=== PATIENT | male | born 1955 | race African-American/Black ===

== ENCOUNTER 2021-04-23 08:36 | Day surgery (SDC) | payer MEDICAID, SELFPAY ==
[2021-04-18 09:12] VITALS: BMI 22.0
--- NOTE | 2021-04-22 09:02 | P.CONAN_ITS ---
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 Unspecified convulsions Social History Social History Are you a primary healthcare account manager to a significant other at home: No Do you presently have visiting nurse or other home services: No Patient Tobacco Use Status: Tobacco use Unknown Are you DNR?: No Advance Directives: Yes Advance Directives Information Provided: No Advance Directives on File: Yes Advance Directives Date on File: 06/14/09 Recently lost weight without trying: No Meds Allergies Allergy/AdvReac Type Severity Reaction Status Date / Time insulin aspart Allergy Unknown Verified 04/18/21 08:54 Penicillins Allergy Unknown Verified 04/18/21 08:54 Home Medications Medication Instructions Recorded Confirmed Last Taken Type acetaminophen 325 mg tablet 650 mg PO Q4H PRN 04/18/21 04/18/21 Unknown History benztropine 1 mg tablet 1 mg PO BID 04/18/21 04/18/21 Unknown History bisacodyl 10 mg rectal suppository 10 mg OH DAILY PRN 04/18/21 04/18/21 Unknown History doxycycline hyclate 100 mg tablet 100 mg PO BID 04/18/21 04/18/21 Unknown History haloperidol decanoate 0.75 ml IM .[id number] 04/18/21 04/18/21 Unknown History levetiracetam 750 mg tablet 375 mg PO BID 04/18/21 04/18/21 Unknown History (Keppra) ondansetron HCl 4 mg tablet 4 mg PO Q6H PRN 04/18/21 04/18/21 Unknown History sennosides 8.6 mg tablet (senna) 8.6 mg PO DAILY PRN 04/18/21 04/18/21 Unknown History Exam Exam Date and Time: April 22, 2021 09 Height,Weight and Vital Signs: Height 5 ft 8 in Weight 65.771 kg Assessment and Plan Assessment Anesthesia Assessment: Chart Reviewed Documented by User: Cheikh Dumont 04/23/21 18:42 PMFSH Past Medical History Medical History Age-related nuclear cataract of both eyes Concussion with loss of consciousness of unspecified duration 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 Unspecified convulsions Family History Family history of problems with anesthesia: No Surgical History History of Problems with Anesthesia: No Social History Social History Are you a primary healthcare account manager to a significant other at home: No Do you presently have visiting nurse or other home services: No Patient Tobacco Use Status: Tobacco use Unknown Are you DNR?: No Advance Directives: Yes Advance Directives Information Provided: No Advance Directives on File: Yes Advance Directives Date on File: 06/14/09 Recently lost weight without trying: No Meds Allergies Allergy/AdvReac Type Severity Reaction Status Date / Time insulin aspart Allergy Unknown Verified 04/18/21 08:54 Penicillins Allergy Unknown Verified 04/18/21 08:54 Home Medications Medication Instructions Recorded Confirmed Last Taken Type acetaminophen 325 mg tablet 650 mg PO Q4H PRN 04/18/21 04/18/21 Unknown History benztropine 1 mg tablet 1 mg PO BID 04/18/21 04/18/21 Unknown History bisacodyl 10 mg rectal suppository 10 mg OH DAILY PRN 04/18/21 04/18/21 Unknown History doxycycline hyclate 100 mg tablet 100 mg PO BID 04/18/21 04/18/21 Unknown History haloperidol decanoate 0.75 ml IM .[id number] 04/18/21 04/18/21 Unknown History levetiracetam 750 mg tablet 375 mg PO BID 04/18/21 04/18/21 Unknown History (Keirene) ondansetron HCl 4 mg tablet 4 mg PO Q6H PRN 04/18/21 04/18/21 Unknown History sennosides 8.6 mg tablet (senna) 8.6 mg PO DAILY PRN 04/18/21 04/18/21 Unknown History Exam Airway Mallampati Class: III TM Dist: >3cm Neck ROM: Full Denture: Upper Partial: Lower Loose/Missing/Broken Teeth: Yes Heart: rrr Lungs: bl breath sounds Assessment and Plan Final Anesthetic Review Family History of Problems with Anesthesia: No History of Problems with Anesthesia: No NPO: Yes ASA Class: III Final Preanesthetic Review: Natalie Risks/Benef Reviewed Patient Risk: Intermediate Procedure Risk: Intermediate Anesthetic Plan Anesthetic Plan: MAC: Disposition: Standard PACU
[2021-04-23 09:10] VITALS: BP 133/87; PULSE 80; RESP 16; TEMP 35.9; O2SAT 95
[2021-04-23] MEDS: Lactated Ringers 1,000 ML 100 ML IVCONT (09:16)
[2021-04-23 11:25] VITALS: BP 136/83; PULSE 79; RESP 20; TEMP 37; O2SAT 100
--- NOTE | 2021-04-23 11:28 | PM.OP ---
Brief Operative Note Date of Service: 04/23/21 Pre-op diagnosis: Screening Post-op diagnosis: other (Colon polyp) Procedure: Colonoscopy to the cecum and TI with hot snare polypectomy. placement of submucosal ink markings, and placement of 2 Resolution clips Surgeon: Олег Loving Anesthesia: MAC Was an Digital Marketing Apprentice used for this Procedure?: No Estimated blood loss (mL): 2.0 Pathology: other (A. Colon polyp at 50cm) Condition: stable Disposition: PACU
[2021-04-23 11:40] VITALS: BP 147/78; PULSE 78; RESP 16; O2SAT 98
--- NOTE | 2021-04-23 12:19 | OP_ITS ---
SURGEON: Олег Loving MD INDICATIONS: The patient presents for evaluation of colorectal cancer screening. Full consent has been obtained from his guardian, Business Project Manager Godbout, including risks of bleeding and perforation. PREOPERATIVE DIAGNOSIS: Colorectal cancer screening. POSTOPERATIVE DIAGNOSIS: Colorectal cancer screening, large colon polyp, diverticulosis, and internal hemorrhoids. PROCEDURE PERFORMED: Colonoscopy to the cecum and terminal ileum with hot snare polypectomy, placement of submucosal ink markings, and placement of 2 Resolution clips on the polypectomy site. ESTIMATED BLOOD LOSS: COMPLICATIONS: ANESTHESIA: Monitored anesthesia care. ASSISTANTS: SPECIMENS: DESCRIPTION OF PROCEDURE: The patient was placed in the left lateral decubitus position. The digital rectal exam revealed no abnormalities. The Olympus video pediatric colonoscope was entered into the rectum and advanced easily to the cecum. Once in the cecum, I did identify normal-appearing cecal pouch with appendiceal orifice and a normal-appearing ileocecal valve. The terminal ileum was cannulated and appeared normal. The scope withdrawn back in the colon. The entire cecum and ileocecal valve appeared normal. The scope was slowly withdrawn assessing all mucosal surfaces carefully. Preparation was excellent. At 50 cm, which may have been in the proximal descending colon or even the distal transverse colon, was a flat, but quite raised and lobulated polypoid lesion which appeared to be at least adenomatous or villous in nature. It did not appear to be definitively consistent with carcinoma. The lesion itself was quite large and approximately 5 cm x 2 cm. This was removed in piecemeal fashion with the hot snare polypectomy with all pieces recovered by suction. The tissue itself was quite soft. Post-polypectomy, there did not appear to be any definitive residual polyp tissue, but there may have been some at the edges of the lesion. There was no bleeding. I did place submucosal ink markings just distal and just proximal to the lesion. I then placed 2 Resolution clips on at least a portion of the polypectomy site with good deployment and good hemostasis. I did not visualize any other polyps, colitis, nor angiodysplasia. There was a mild amount of sigmoid diverticulosis. In the rectum, scope was retroflexed visualizing internal hemorrhoids, but no other pathology. The rectal mucosa appeared normal. The scope was straightened and withdrawn from the patient. He tolerated the procedure well and was returned to recovery area in stable condition. IMPRESSION: 1. Large polypoid lesion at 50 cm, status post hot snare polypectomy, placement of 2 Resolution clips, and placement of submucosal ink markings. 2. Diverticulosis. 3. Internal hemorrhoids. PLAN: The results of the pathology will be checked. Based on the results, we would then decide whether or not he would need surgery or simply a repeat colonoscopy in the next 6-12 months. Instructions have been given that he should not use any aspirin and NSAIDs for at least 2 weeks. MD FARRAH Fernandez/BIANCA / [id number]
== END 2021-04-23 12:15 | disposition home or self-care (01) ==
PROVIDERS: PCP Hospitalist; Visit Provider Internal Medicine
PROC: 0DJD8ZZ Inspection of Lower Intestinal Tract, Via Natural or Artificial Opening Endoscopic (ICD-10-PCS; CPT 45378; principal; 2021-04-23 09:20)
DX: Z12.11 Encounter for screening for malignant neoplasm of colon (principal); K63.5 Polyp of colon; K57.30 Diverticulosis of large intestine without perforation or abscess without bleeding; K64.8 Other hemorrhoids; R56.9 Unspecified convulsions; Z88.0 Allergy status to penicillin; Z79.899 Other long term (current) drug therapy
CPT/HCPCS: 45385; 45381; 88305

== ENCOUNTER 2021-09-26 09:10 | Day surgery (SDC) | payer MEDICAID, SELFPAY ==
[2021-09-24 09:02] VITALS: BMI 23.2
--- NOTE | 2021-09-24 15:19 | P.CONAN_ITS ---
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 Unspecified convulsions Family History Family history of problems with anesthesia: No Surgical History History of Problems with Anesthesia: No Social History Social History Are you a primary progressive care unit registered nurse to a significant other at home: No Do you presently have visiting nurse or other home services: No Patient Tobacco Use Status: Former Tobacco user Are you DNR?: No Advance Directives: Yes Advance Directives on File: Yes Advance Directives Date on File: 06/14/09 Recently lost weight without trying: No Meds Allergies Allergy/AdvReac Type Severity Reaction Status Date / Time insulin aspart Allergy Unknown Verified 04/18/21 08:54 Penicillins Allergy Unknown Verified 04/18/21 08:54 Home Medications Medication Instructions Recorded Confirmed Last Taken Type acetaminophen 325 mg tablet 650 mg PO Q4H PRN Pain 04/18/21 04/18/21 Unknown History benztropine 1 mg tablet 1 mg PO BID 04/18/21 04/18/21 09/26/21 History haloperidol decanoate 0.75 ml IM .[id number] 04/18/21 04/18/21 Unknown History levetiracetam 750 mg tablet 375 mg PO BID 04/18/21 04/18/21 09/26/21 History (Keirene) Exam Exam Date and Time: September 24, 2021 1519 Height,Weight and Vital Signs: Height 5 ft 8 in Weight 69.4 kg Assessment and Plan Assessment Anesthesia Assessment: Chart Reviewed Final Anesthetic Review Family History of Problems with Anesthesia: No History of Problems with Anesthesia: No Documented by User: Cheikh Dumont MD 09/30/21 19:04 COUNT INCLUDES THE [facility] Past Medical History Medical History Age-related nuclear cataract of both eyes Concussion with loss of consciousness of unspecified duration 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 Unspecified convulsions Social History Social History Are you a primary progressive care unit registered nurse to a significant other at home: No Do you presently have visiting nurse or other home services: No Patient Tobacco Use Status: Former Tobacco user Are you DNR?: No Advance Directives: Yes Advance Directives on File: Yes Advance Directives Date on File: 06/14/09 Recently lost weight without trying: No Meds Allergies Allergy/AdvReac Type Severity Reaction Status Date / Time insulin aspart Allergy Unknown Verified 04/18/21 08:54 Penicillins Allergy Unknown Verified 04/18/21 08:54 Home Medications Medication Instructions Recorded Confirmed Last Taken Type acetaminophen 325 mg tablet 650 mg PO Q4H PRN Pain 04/18/21 04/18/21 Unknown History benztropine 1 mg tablet 1 mg PO BID 04/18/21 04/18/21 09/26/21 History haloperidol decanoate 0.75 ml IM .[id number] 04/18/21 04/18/21 Unknown History levetiracetam 750 mg tablet 375 mg PO BID 04/18/21 04/18/21 09/26/21 History (Keirene) Exam Airway Mallampati Class: II TM Dist: >3cm Neck ROM: Full Loose/Missing/Broken Teeth: Yes (Loose lower teeth , multiple missing , poor dentition overall ) Heart: S1,S2 Lungs: b/l breath sounds Assessment and Plan Assessment Anesthesia Assessment: Anesthesia Plan Discussed Final Anesthetic Review NPO: Yes ASA Class: III Final Preanesthetic Review: Meds/Allgs Chart Reviewed, Consent Obtained/Reviewed and Anes Risks/Benef Reviewed Patient Risk: High Procedure Risk: Intermediate Anesthetic Plan Anesthetic Plan: MAC: Disposition: Standard PACU
[2021-09-26] VITALS (7 sets, daily range): BP systolic 109–148; BP diastolic 76–86; PULSE 58–93; RESP 14–18; TEMP 36.2–36.3; O2SAT 97–99
[2021-09-26] MEDS: Lactated Ringers 1,000 ML 100 ML IVCONT (10:13)
[2021-09-26] MEDS: Sodium Phosphate,Mono-Dibasic 133 ML ENEMA PR (10:13)
--- NOTE | 2021-09-26 10:33 | PC.NURSE ---
spoke to linda tabares from [facility] to verify pt took entire prep and all clear liquids yesterday also to verify meds. pt took entire prep all clear liquids yesterday and took keirene and rebaentin this am at 6am. fleet given results tanish to yellow no solids
--- NOTE | 2021-09-26 11:35 | P.BOP_ITS ---
Brief Operative Note Date of Service: 09/26/21 Pre-op diagnosis: Screening Post-op diagnosis: other (Colon polyp) Procedure: Colonoscopy to the cecum and TI with bx/removal of polyp Surgeon: Олег Loving Anesthesia: MAC Was an Business Development Recruiter used for this Procedure?: No Estimated blood loss (mL): 2.0 Pathology: other (A. Polyp at site of previous polypectomy site at 50cm) Condition: stable Disposition: PACU
--- NOTE | 2021-09-26 12:42 | OP_ITS ---
SURGEON: Олег Loving MD INDICATIONS: The patient presents for followup of a personal history of a large flat tubulovillous adenoma. Full consent has been obtained from his legal guardian for this, including risks of bleeding and perforation. PREOPERATIVE DIAGNOSIS: POSTOPERATIVE DIAGNOSIS: PROCEDURE PERFORMED: Colonoscopy to the cecum and terminal ileum with biopsy and removal of polyp. ESTIMATED BLOOD LOSS: COMPLICATIONS: ANESTHESIA: Monitored anesthesia care. ASSISTANTS: SPECIMENS: PREOPERATIVE DIAGNOSES: Colorectal cancer screening and personal history of colon polyps. POSTOPERATIVE DIAGNOSES: Colorectal cancer screening and personal history of colon polyps, colon polyp, diverticulosis and internal hemorrhoids. DESCRIPTION OF PROCEDURE: The patient was placed in the left lateral decubitus position. The digital rectal exam revealed no abnormalities. The Olympus video pediatric colonoscope was entered into the rectum and advanced easily to the cecum. Once in the cecum, I did identify normal-appearing cecal pouch with appendiceal orifice and a normal-appearing ileocecal valve. The terminal ileum was cannulated and appeared normal. The scope was withdrawn back from the colon. The entire cecum and ileocecal valve appeared normal. The scope was slowly withdrawn assessing all mucosal surfaces carefully. Preparation was excellent. At the site of approximately 50 cm were previously placed submucosal ink ragland. In between the ragland was an area of scarring consistent with his previous polypectomy. There was 1 area approximately 3 or 4 mm in size of some residual polyp and this was biopsied and completely removed with cold biopsy forceps. I did not visualize any other signs of residual polyp in this area. I did not visualize any other polyps, colitis, nor angiodysplasia. There was a mild amount of sigmoid diverticulosis. In the rectum, scope was retroflexed visualizing internal hemorrhoids, but no other pathology. The rectal mucosa appeared normal. The scope was straightened and withdrawn from the patient. He tolerated the procedure well and was returned to the recovery area in stable condition. IMPRESSION: 1. Small residual polyp at area of previous polypectomy, status post biopsy removal. 2. Diverticulosis. 3. Internal hemorrhoids. PLAN: The results of the pathology will be checked. I would recommend a repeat colonoscopy in 2 years for further surveillance given the previous finding of the large flat tubulovillous adenoma. He will see me otherwise on a p.r.n. basis. MD FARRAH Fernandez/BIANCA / [id number]
== END 2021-09-26 13:20 | disposition home or self-care (01) ==
PROVIDERS: PCP Hospitalist; Visit Provider Internal Medicine
PROC: 0DJD8ZZ Inspection of Lower Intestinal Tract, Via Natural or Artificial Opening Endoscopic (ICD-10-PCS; CPT 45378; principal; 2021-09-26 10:30)
DX: Z12.11 Encounter for screening for malignant neoplasm of colon (principal); Z86.010 Personal history of colon polyps; D12.5 Benign neoplasm of sigmoid colon; K57.30 Diverticulosis of large intestine without perforation or abscess without bleeding; K64.8 Other hemorrhoids; F29 Unspecified psychosis not due to a substance or known physiological condition; G40.909 Epilepsy, unspecified, not intractable, without status epilepticus; Z79.899 Other long term (current) drug therapy; Z88.0 Allergy status to penicillin; Z88.8 Allergy status to other drugs, medicaments and biological substances; Z87.891 Personal history of nicotine dependence
CPT/HCPCS: 45380; 88305

== ENCOUNTER 2022-05-26 07:38 | Inpatient (IN) | payer MEDICAID, SELFPAY ==
[2022-05-26] VITALS (9 sets, daily range): BP systolic 120–153; BP diastolic 78–87; PULSE 68–117; RESP 17–20; TEMP 36.2–37.4; O2SAT 93–100; BMI 22.3
--- NOTE | ~2022-05-26 | CT_ITS ---
EXAMINATION: CT angio head neck stroke CLINICAL INFORMATION: Altered mental status. Aphasia. COMPARISON: CT scan of the head 05/26/2022. TECHNIQUE: Firer Retort images were obtained. A CT angiogram of the head and neck was performed in the arterial phase after the intravenous administration of 70 mL Omnipaque 350. Delayed postcontrast images of the head were also obtained. MIP reconstructions were generated in multiple orientations at the acquisition workstation. Multiple three-dimensional surface rendered images and maximum intensity projection images were generated on a dedicated 3-D lab workstation. Arterial stenoses are measured in accordance with NASCET criteria or similar method if applicable. This CT examination was performed using dose optimization techniques as appropriate, including one or more of the following: Automated exposure control, iterative reconstruction, and adjustment of technique factors (mA and/or kVp) according to patient size (this includes techniques or standardized protocols for targeted exams where dose is matched to indication/reason for exam). Fleischner Society criteria for the followup of incidental pulmonary nodules was implemented if appropriate. Total exam dose-length product 1490 mGy-cm FINDINGS: Head: There are chronic postcraniotomy changes and there is corresponding gliosis and encephalomalacia primarily involving the left frontal lobe. There are also smaller foci of chronic encephalomalacia involving the right superior frontal gyrus and the left anterior temporal lobe. Postcontrast images reveal no abnormal intracranial mass or enhancement. There is no intracranial mass effect or midline shift. Lateral and third ventricles are proportionate to the subarachnoid spaces. No hydrocephalus. The skull base is grossly intact. No mastoid middle ear effusion. No active paranasal sinus disease. CT angiogram neck: The aortic arch apex is normal. Origins of the major aortic branches are widely patent. Common carotid arteries and carotid bifurcations are normal. No stenosis of the extracranial internal carotid arteries. The cervical segments of the vertebral arteries are widely patent. CT angiogram head: Intracranial internal carotid arteries are patent. Intradural vertebral artery segments and basilar artery are patent. Anterior, middle, and posterior cerebral complexes are unremarkable. No intracranial large vessel occlusion. No identifiable aneurysm or high flow vascular lesion. Other: Soft tissues of the neck including the thyroid gland are normal. Grossly no pathologically enlarged cervical lymph nodes. Visualized lung apices are clear. CT/CT angio head neck stroke IMPRESSION: There are chronic postcraniotomy changes with corresponding gliosis and encephalomalacia primarily involving the left frontal lobe. There are also smaller foci of chronic encephalomalacia involving the right superior frontal gyrus and the left anterior temporal lobe. No acute intracranial finding. Specifically no evidence of acute territorial infarct or hemorrhage. No abnormal intracranial mass or enhancement. Cervical carotid and vertebral arteries are widely patent. No intracranial large vessel occlusion.
--- NOTE | ~2022-05-26 | XR_ITS ---
EXAMINATION: XR CHEST CLINICAL INFORMATION: Encephalopathy. Pre-MRI clearance for foreign body COMPARISON: None TECHNIQUE: Frontal view of the chest was obtained. FINDINGS: The cardiac silhouette is slightly enlarged. Hilar and mediastinal contours are unremarkable. The lungs are clear. No pleural effusion or pneumothorax. No acute bone abnormality. No foreign body or medical technologist blood bank in the chest. XR/XR chest 1V IMPRESSION: Slightly enlarged cardiac silhouette. No evidence for acute disease in the chest.
--- NOTE | ~2022-05-26 | CT_ITS ---
EXAMINATION: CT HEAD WITHOUT CONTRAST (STROKE PROTOCOL) CLINICAL INFORMATION: Stroke protocol. Rule out stroke. Altered speech/aphasia. COMPARISON: None TECHNIQUE: Contiguous axial imaging was performed from the skull base to vertex without intravenous administration of contrast. This CT examination was performed using dose optimization techniques as appropriate, variously including the following: *Automated exposure control *Adjustment of mA and/or kV according to patient size (this includes techniques or standardized protocols for targeted exams where dose is matched to indication/reason for exam; i.e. extremities or head) *Use of iterative reconstruction technique DLP: 706 mGy-cm FINDINGS: There is no evidence of an extra-axial collection. There is no evidence of intra or extra-axial hemorrhage. There is a large area of low attenuation in the left frontal lobe and some involvement of the left temporal lobe suggestive of encephalomalacia or old infarct. The ventricles and extra-axial CSF spaces are otherwise appropriate. No mass, mass effect or acute infarct is seen. There are postsurgical changes to the left frontal bone. No skull fracture. Paranasal sinuses, mastoid air cells and middle ears are clear. CT/CT head for stroke IMPRESSION: No acute findings. Postsurgical changes to the left frontal bone and large area of encephalomalacia of the left frontal and temporal lobes. This critical result was discussed with Dr. Ellis at 0945 hours on 05/26/2022. It was ascertained that the content and urgency of the report was understood at the time of direct communication.
--- NOTE | ~2022-05-26 | XR_ITS ---
EXAMINATION: XR ABDOMEN KUB CLINICAL INDICATION: Evaluate for metal COMPARISON: 04/29/2006 TECHNIQUE: AP view of the abdomen. FINDINGS: The bowel gas pattern is normal with no evidence of ileus or obstruction. Stool present throughout the left colon and rectum. No unusual soft tissue calcifications are noted. Residual contrast in the bladder. The bones are unremarkable. XR/XR KUB IMPRESSION: * No radiopaque/metallic foreign bodies. * Moderate constipation.
--- NOTE | 2022-05-26 07:55 | ED.WEAKNESS ---
HPI - Weakness General Chief complaint: Stroke Stated complaint: AMS FROM [facility] PER EMS Time Seen by Provider: 05/26/22 07:53 Source: EMS Mode of arrival: EMS Limitations: altered mental status History of Present Illness HPI Narrative: aphasia. At midnight he started to become altered, patient remains aphasic Onset (ago): hour(s) (8) Duration: constant Severity: severe Related Data Home Medications Medication Instructions Recorded Confirmed acetaminophen 325 mg tablet 650 mg PO Q4H PRN Pain 04/18/21 05/26/22 benztropine 1 mg tablet 1 mg PO BID 04/18/21 05/26/22 haloperidol decanoate 0.75 ml IM .[id number] 04/18/21 05/26/22 Previous Rx's Medication Instructions Recorded aspirin 81 mg tablet,delayed 81 mg PO DAILY #30 tabs 05/27/22 release levetiracetam 750 mg tablet 750 mg PO BID #60 tabs 05/27/22 (Keppra) Allergies Allergy/AdvReac Type Severity Reaction Status Date / Time insulin aspart Allergy Unknown Verified 05/27/22 00:18 Penicillins Allergy Unknown Verified 05/27/22 00:18 Review of Systems Review of Systems: Yes Unobtainable due to mental status PMFSH Past Medical History Medical History Age-related nuclear cataract of both eyes Concussion with loss of consciousness of unspecified duration 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 Unspecified convulsions Family History Family History (Updated 05/26/22 @ 13:44 by CISCO Alvarez) Other Family history unknown Social History Social History Household Members: Unknown / Unable to assess Housing: Unknown / Unable to assess Are you a primary hospice home care coordinator to a significant other at home: No Do you presently have visiting nurse or other home services: No Unable to assess alcohol history related to: Unknown Alcohol intake: unknown Patient Tobacco Use Status: Tobacco use Unknown Advance Directives Date on File: 06/14/09 service: No Physical Exam Vital Signs: Vital Signs: Last Vital Signs Temp 97.0 F 05/27/22 15:25 Pulse 75 05/27/22 15:25 Resp 16 05/27/22 15:25 BP 143/82 H 05/27/22 15:25 Pulse Ox 96 05/27/22 15:25 O2 Del Method 05/27/22 15:25 BMI result Body Mass Index 22.3 Const: Other: chronically ill appearing Nutritional Appearance: average body habitus Limitations: altered mental status and other limitations (aphasic) HEENT: Head: Yes normal to inspection Ears: external ears normal General nose exam: Normal external nose present Mouth: Normal oral and palatal mucosa present and oropharynx normal Throat: Yes posterior oropharynx normal Eyes: General: appearance normal, both eyes and all related structures Neck: Other: supple Neck: Yes normal visual inspection Chest: Chest palpation & inspection: normal inspection of the chest Resp: Auscultation: clear to auscultation bilaterally Cardio: Jugular venous distension: no JVD Rate: regular rate Rhythm: regular rhythm Heart sounds: S1 normal heart sound present and S2 normal heart sound present GI: Inspection: Yes normal to inspection Palpation (GI): Soft to palpation, nontender and No hepatosplenomegaly present Auscultation: normal bowel sounds : General: Yes no CVA tenderness Back/Spine/Pelvis: Back: no CVA tenderness Skin: General skin exam: no rashes or lesions noted Neuro: Cranial nerves: Yes CN's II-XII intact bilaterally Motor exam (neuro): 5/5 motor strength present throughout Extrem: General: Yes normal to inspection Psych: Other: flat affect occaisionally agitated NIH Stroke Scale Level of Consciousness: Alert Level of Consciousness Questions: Answers neither question correctly Level of Consciousness Commands: Performs neither task correctly Facial Palsy: Normal Motor Arm (Right): No drift Motor Arm (Left): No drift Motor Leg (Right): No drift Motor Leg (Left): No drift Best Language: Mute, global aphasia Course Reevaluation(s) Reevaluation #1: I spent 40 minutes of critical care, with interventions, assessments, speaking to patient, consultants, and family. Medications Administered Discontinued Medications Generic Name Dose Route Start Last Admin Trade Name Freq PRN Reason Stop Dose Admin Aspirin 300 mg 05/26/22 13:25 05/26/22 14:01 Aspirin 300 Mg Supp.Rect OK 05/26/22 13:26 300 mg ONCE ONE Administration Aspirin 81 mg 05/27/22 09:00 05/27/22 09:25 Aspirin Enteric Coated 81 Mg Tablet.Dr PO Not Given DAILY CALEB Atorvastatin Calcium 80 mg 05/27/22 09:00 05/27/22 09:25 Atorvastatin Calcium 80 Mg Tablet PO Not Given DAILY CALEB Diphenhydramine HCl 25 mg 05/26/22 22:59 05/26/22 23:15 Diphenhydramine Hcl 50 Mg/Ml Vial IVPUSH 05/26/22 23:00 25 mg ONCE ONE Administration Enoxaparin Sodium 40 mg 05/26/22 13:30 05/27/22 14:51 Enoxaparin Sodium 40 Mg/0.4 Ml Syringe SUBCUT 40 mg Q24H CALEB Administration Haloperidol Lactate 2.5 mg 05/26/22 08:12 05/26/22 08:25 Haloperidol Lactate 5 Mg/Ml Vial IVPUSH 05/26/22 08:13 2.5 mg ONCE ONE Administration Haloperidol Lactate 2.5 mg 05/26/22 08:57 05/26/22 09:08 Haloperidol Lactate 5 Mg/Ml Vial IVPUSH 05/26/22 08:58 2.5 mg ONCE ONE Administration Haloperidol Lactate 5 mg 05/26/22 19:37 05/26/22 20:02 Haloperidol Lactate 5 Mg/Ml Vial IM 05/26/22 19:38 5 mg ONCE ONE Administration Sodium Chloride 1,000 mls @ 100 mls/hr 05/26/22 13:30 05/27/22 12:16 Ns IVCONT Infused .Q10H CALEB Infusion Levetiracetam 375 mg/ Sodium 103.75 mls @ 410 mls/hr 05/26/22 13:30 05/27/22 15:13 Chloride IV Infused Q12H CALEB Infusion Iohexol 100 ml 05/26/22 12:03 05/26/22 12:04 Iohexol 350 Mg/Ml 100 Ml Infus..Btl IV 05/26/22 12:04 70 ml ONCE ONE Administration Lorazepam 1 mg 05/26/22 08:12 05/26/22 08:25 Lorazepam 2 Mg/Ml Vial IVPUSH 05/26/22 08:13 1 mg STAT STA Administration Lorazepam 1 mg 05/26/22 08:57 05/26/22 09:08 Lorazepam 2 Mg/Ml Vial IVPUSH 05/26/22 08:58 1 mg ONCE ONE Administration Lorazepam 1 mg 05/26/22 16:02 05/26/22 16:28 Lorazepam 2 Mg/Ml Vial IVPUSH 05/26/22 16:03 1 mg STAT STA Administration Sodium Chloride 3 ml 05/26/22 16:00 05/27/22 14:52 0.9 % Sodium Chloride Flush 3 Ml Syringe IVFLUSH 3 ml QSHIFT CALEB Administration Medical Decision Making Differential Diagnosis Differential Diagnoses: The differential diagnosis associated with the presentation includes (CVA, cerebral bleed, seizure) Admission/Observation Consideration of admission/observation: Escalation of care including admission/observation considered (patient with new aphasia admission considered immediately) Consult Healthcare Provider Management of the patient was discussed with: Hospitalist and Supervisor [employer] (haroon atkinson) Lab Data MDM Lab Attestation statement: I reviewed the patient's lab results. 05/26/22 08:08 05/26/22 08:08 Labs: Lab Results 05/26/22 05/26/22 05/26/22 Range/Units 08:03 08:08 08:08 WBC 10.5 (4.8-10.8) X10*3/uL RBC 5.41 (4.60-5.80) X10*6/uL Hgb 15.5 (14.0-18.0) g/dl Hct 44.0 (42.0-52.0) % MCV 81.3 (80.0-98.0) fL MCH 28.7 (27.0-33.0) pg MCHC 35.2 (31.0-36.0) g/dl RDW 12.9 (11.0-16.0) % Plt Count 205 (160-400) X10*3/uL MPV 8.6 L (9.4-12.4) fL Immature Gran % (Auto) 0.5 H (0.0-0.4) % Neut % (Auto) 87.1 H (45-73) % Lymph % (Auto) 6.3 L (20-40) % [place] % (Auto) 5.9 (2-11) % Eos % (Auto) 0.0 (0-4) % Baso % (Auto) 0.2 (0-2) % Lymph # (Auto) 0.7 L (1.2-4.9) X10*3/uL [place] # (Auto) 0.6 (0.1-1.2) X10*3/uL Eos # (Auto) 0.0 (0.0-0.4) X10*3/uL Baso # (Auto) 0.0 (0.0-0.2) X10*3/uL Abs Immat Gran (auto) 0.05 H (0.00-0.03) X10*3/uL Absolute Neuts (auto) 9.1 H (2.0-8.3) x10*3/uL Absolute Nucleated RBC 0.000 (0.0-0.012) X10*3/uL Nucleated RBC % (auto) 0.0 (0.0-0.2) /100WBC PT 11.7 (10.0-13.1) SEC INR 1.0 (0.9-1.1) APTT 25.6 L (26.0-36.4) SEC Sodium (135-145) mmol/L Potassium (3.3-5.1) mmol/L Chloride (96-108) mmol/L Carbon Dioxide (22-29) mmol/L Anion Gap (12-20) BUN (9-16) mg/dL Creatinine (0.5-1.4) mg/dL Estim Creat Clear Calc Estimated GFR POC Glucose 158 H (60-115) mg/dL Random Glucose (60-115) mg/dL Calcium (8.4-10.2) mg/dL Total Creatine Kinase (38-174) U/L Troponin I High Sens (<3.5-35.0) ng/L Triglycerides mg/dL Cholesterol mg/dL LDL Cholesterol, Calc mg/dl HDL Cholesterol mg/dL COVID-19 (NEELA) (Negative) COVID-19 Clin Com 05/26/22 05/26/22 05/26/22 Range/Units 08:08 08:08 10:28 WBC (4.8-10.8) X10*3/uL RBC (4.60-5.80) X10*6/uL Hgb (14.0-18.0) g/dl Hct (42.0-52.0) % MCV (80.0-98.0) fL MCH (27.0-33.0) pg MCHC (31.0-36.0) g/dl RDW (11.0-16.0) % Plt Count (160-400) X10*3/uL MPV (9.4-12.4) fL Immature Gran % (Auto) (0.0-0.4) % Neut % (Auto) (45-73) % Lymph % (Auto) (20-40) % [place] % (Auto) (2-11) % Eos % (Auto) (0-4) % Baso % (Auto) (0-2) % Lymph # (Auto) (1.2-4.9) X10*3/uL [place] # (Auto) (0.1-1.2) X10*3/uL Eos # (Auto) (0.0-0.4) X10*3/uL Baso # (Auto) (0.0-0.2) X10*3/uL Abs Immat Gran (auto) (0.00-0.03) X10*3/uL Absolute Neuts (auto) (2.0-8.3) x10*3/uL Absolute Nucleated RBC (0.0-0.012) X10*3/uL Nucleated RBC % (auto) (0.0-0.2) /100WBC PT (10.0-13.1) SEC INR (0.9-1.1) APTT (26.0-36.4) SEC Sodium 138 (135-145) mmol/L Potassium 4.1 (3.3-5.1) mmol/L Chloride 105 (96-108) mmol/L Carbon Dioxide 20 L (22-29) mmol/L Anion Gap 17 (12-20) BUN 20 H (9-16) mg/dL Creatinine 1.35 (0.5-1.4) mg/dL Estim Creat Clear Calc 51.5 Estimated GFR 53 POC Glucose (60-115) mg/dL Random Glucose 153 H (60-115) mg/dL Calcium 9.2 (8.4-10.2) mg/dL Total Creatine Kinase 66 (38-174) U/L Troponin I High Sens 135.4 H* (<3.5-35.0) ng/L Triglycerides 103 mg/dL Cholesterol 212 mg/dL LDL Cholesterol, Calc 155 mg/dl HDL Cholesterol 37 mg/dL COVID-19 (NEELA) Negative (Negative) COVID-19 Clin Com See Note Independent Interpretation I performed an independent interpretation of an: EKG (sinus 93, no st or twave changes) Radiology Impression Discussion of test interpretation with radiology: I discussed test interpretation with the radiologist (stroke CTs were reviewed with the radiologist) Chronic Conditions Patient?s care impacted by: Other (brain surgery) Discharge Plan Discharge Clinical Impression: Cerebrovascular accident Patient Disposition: Admitted As Inpatient Interventions: Admission Worksheet (ED) Last Done: 05/26/22 15:26 Discharge Date/Time: 05/26/22 15:27
--- NOTE | 2022-05-26 07:56 | ECG_ITS ---
Test Reason : stroke Blood Pressure : / mmHG Vent. Rate : 093 BPM Atrial Rate : 093 BPM P-R Int : 160 ms QRS Dur : 078 ms QT Int : 374 ms P-R-T Axes : 073 -87 084 degrees QTc Int : 465 ms Artifact in tracing Normal sinus rhythm Left axis deviation Cannot exlude old anteroseptal infact, but could be from body habitus/lead placement Abnormal ECG No previous ECGs available Referred By: Vijay Ellis Electronically Signed By:CHUCKY BENNETT
[2022-05-26 08:08] LABS: Glucose, Whole Blood 158 mg/dL (60-115)
[2022-05-26 08:13] LABS: Basophils Percent Auto 0.2 % (0-2); Hemoglobin 15.5 g/dl (14.0-18.0); Imm Gran Abs Auto 0.05 X10*3/uL (0.00-0.03); Imm Gran Pct Auto 0.5 % (0.0-0.4); Lymphocytes Absolute Auto 0.7 X10*3/uL (1.2-4.9); Lymphocytes Percent Auto 6.3 % (20-40); MANUAL DIFF FLAG NO; Mean Corpuscular HGB Conc 35.2 g/dl (31.0-36.0); Mean Corpuscular Hemoglobin 28.7 pg (27.0-33.0); Mean Corpuscular Volume 81.3 fL (80.0-98.0); Mean Platelet Volume 8.6 fL (9.4-12.4); Monocytes Absolute Auto 0.6 X10*3/uL (0.1-1.2); Monocytes Percent Auto 5.9 % (2-11); Neutrophils Absolute Auto 9.1 x10*3/uL (2.0-8.3); Neutrophils Percent Auto 87.1 % (45-73); Platelet Count 205 X10*3/uL (160-400); Red Blood Count 5.41 X10*6/uL (4.60-5.80); Red Cell Distribution Width 12.9 % (11.0-16.0); White Blood Count 10.5 X10*3/uL (4.8-10.8)
--- NOTE | 2022-05-26 08:16 | PC.NURSE ---
Addendum entered by Gia Briggs 05/26/22 09:39: currently attempting to obtained a ct for stroke rule out but pt is unable to lay still on the table, hx of tbi, dr madrigal aware. plan to medicated the pt to get the best imagine performed to rule out stroke Original Note: attempted to get the head ct but pt not laying still on the table, attempting to get up off the table, dr madrigal aware pt's speech very incoherent/garbled supposable pt's basline is alert and oriented and clear speech, very small left sided facial droop, moving all extremeties
[2022-05-26 08:20] LABS: Prothrombin Time 11.7 SEC (10.0-13.1)
--- NOTE | 2022-05-26 08:20 | MHC.EDTECH ---
EKG delayed due to pt agitation and not cooperating. will re-attempt after pt receives medication per rn order.
[2022-05-26 08:23] LABS: Partial Thromboplastin Time 25.6 SEC (26.0-36.4)
[2022-05-26] MEDS: LORazepam 2 MG/ML VIAL 1 MG IVPUSH ×3 (08:25→16:28)
[2022-05-26] MEDS: Haloperidol Lactate 5 MG/ML VIAL 2.5 MG IVPUSH ×2 (08:25→09:08)
[2022-05-26 08:29] LABS: Anion Gap 17 (12-20); Blood Urea Nitrogen 20 mg/dL (9-16); Calcium 9.2 mg/dL (8.4-10.2); Carbon Dioxide 20 mmol/L (22-29); Chloride 105 mmol/L (96-108); Creatinine Clr Calc Pharmacy 51.5; Estimated Glomerular Filt Rate 53; Glucose Random 153 mg/dL (60-115); Potassium 4.1 mmol/L (3.3-5.1); Sodium 138 mmol/L (135-145)
[2022-05-26 08:39] LABS: Troponin-I High Sensitivity 135.4 ng/L (<3.5-35.0)
[2022-05-26 08:54] LABS: Stroke Lab Use COMPLETE
--- NOTE | 2022-05-26 09:12 | PC.NURSE ---
pt continuos on attempting to get out of bed and pulling on medical equipment, vs stable and ns on the monitor
[2022-05-26 11:07] LABS: COVID-19 Test Negative (Negative); IDNOW Serial# 9DB6401D
--- NOTE | 2022-05-26 11:45 | PHA.MEDREC ---
Pharmacy Consult ? Medication Reconciliation Pharmacy has completed the medication reconciliation. Med rec completed using list from [facility]. Last dose of haloperidol confirmed with facility ([phone]).
[2022-05-26] MEDS: iohexoL 350 MG/ML 100 ML INFUS..BTL IV (12:04)
--- NOTE | 2022-05-26 13:24 | P.HPHOSP_ITS ---
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 On arrival, patient aphasic unable to provide much history and not responding to commands. History obtained from ED staff and [facility] notes. Vital signs stable. Hematology studies unremarkable. Creatinine 1.35, BUN 20, electrolytes normal except for CO2 of 20. Troponin 135.4, repeat pending. EKG showing NSR, rate 93 with pulmonary disease pattern, no ST/T-wave abnormality. Head CT without any acute intracranial findings which showing postsurgical changes of left frontal bone and large area of encephalomalacia of the left frontal and temporal lobes. Head/neck CTA with similar chronic post craniotomy changes but no acute intracranial finding including infarct or hemorrhage. There is no abnormal intracranial mass or enhancement and carotids and vertebral arteries are widely patent, no LVO. Pt has failed nursing swallow eval. Discussion had with stroke team, not a tpa candidate. Given persistent encephalopathy and aphasia, patient will be admitted for suspected acute CVA and further work up. 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 Unspecified convulsions Family History (Updated 05/26/22 @ 13:44 by CISCO Alvarez) Other Family history unknown Social History Are you a primary respite care provider to a significant other at home: No Do you presently have visiting nurse or other home services: No Alcohol intake: unknown Patient Tobacco Use Status: Former Tobacco user Advance Directives: No Advance Directives Information Provided: No Advance Directives Date on File: 06/14/09 Meds Allergies Allergy/AdvReac Type Severity Reaction Status Date / Time insulin aspart Allergy Unknown Verified 04/18/21 08:54 Penicillins Allergy Unknown Verified 04/18/21 08:54 Active Medications: Current Medications Enoxaparin Sodium (Enoxaparin Sodium 40 Mg/0.4 Ml Syringe) 40 mg SUBCUT Q24H CALEB Sodium Chloride (Ns) 1,000 mls @ 100 mls/hr IVCONT .Q10H CALEB Levetiracetam 375 mg/ Sodium (Chloride) 103.75 mls @ 410 mls/hr IV Q12H CALEB Ondansetron HCl (Ondansetron Hcl 4 Mg/2 Ml Vial) 4 mg IVPUSH Q8H PRN PRN Reason: Nausea and Vomiting Pharmacy Consult (Consult Rx Perform Med Rec) 1 each MISCELLANE ONCE PRN PRN Reason: Consult order Sodium Chloride (0.9 % Sodium Chloride Flush 3 Ml Syringe) 3 ml IVFLUSH QSHIFT CALEB Home Medications Medication Instructions Recorded Confirmed Last Taken Type acetaminophen 325 mg tablet 650 mg PO Q4H PRN Pain 04/18/21 05/26/22 Unknown History benztropine 1 mg tablet 1 mg PO BID 04/18/21 05/26/22 09/26/21 History haloperidol decanoate 0.75 ml IM .[id number] 04/18/21 05/26/22 05/06/22 History levetiracetam 750 mg tablet 375 mg PO BID 04/18/21 05/26/22 09/26/21 History (Reyna) Physical Exam Vital Signs and Narrative: Vital Signs: Last Vital Signs Temp 99.4 F 05/26/22 09:56 Pulse 68 05/26/22 09:56 Resp 18 05/26/22 09:18 BP 140/87 H 05/26/22 09:56 Pulse Ox 99 05/26/22 09:18 O2 Del Method 05/26/22 09:18 BMI result Body Mass Index 22.3 Constitutional - Awake and Alert, No apparent distress Eyes - PERRLA, EOMI Cardiovascular - S1S2, RRR, No edema Respiratory - Normal lung expansion, Normal respiratory effort, No respiratory distress, CTA bilaterally Gastrointestinal - NT / ND; +BS; No rebound or guarding Extremities - no calf tenderness bilaterally, no swelling Skin - Warm/Dry Neurological - Alert & disoriented, largely aphasic inappropriately and sporadically stating yes Maam not making eye contact trying to get out of bed. Unable to participate in further neuro exam, but strength appears to be in tact Results Labs 05/26/22 08:08 05/26/22 08:08 Labs: Laboratory Results - last 24 hr 05/26/22 05/26/22 05/26/22 08:03 08:08 08:08 MCV 81.3 MCH 28.7 MCHC 35.2 RDW 12.9 Plt Count 205 MPV 8.6 L Immature Gran % (Auto) 0.5 H Neut % (Auto) 87.1 H Lymph % (Auto) 6.3 L [place] % (Auto) 5.9 Eos % (Auto) 0.0 Baso % (Auto) 0.2 Lymph # (Auto) 0.7 L [place] # (Auto) 0.6 Eos # (Auto) 0.0 Baso # (Auto) 0.0 Abs Immat Gran (auto) 0.05 H Absolute Neuts (auto) 9.1 H Absolute Nucleated RBC 0.000 Nucleated RBC % (auto) 0.0 PT 11.7 INR 1.0 APTT 25.6 L Anion Gap Estim Creat Clear Calc Estimated GFR POC Glucose 158 H Random Glucose Calcium Total Creatine Kinase Troponin I High Sens COVID-19 (NEELA) COVID-19 Clin Com 05/26/22 05/26/22 05/26/22 08:08 08:08 10:28 MCV MCH MCHC RDW Plt Count MPV Immature Gran % (Auto) Neut % (Auto) Lymph % (Auto) [place] % (Auto) Eos % (Auto) Baso % (Auto) Lymph # (Auto) [place] # (Auto) Eos # (Auto) Baso # (Auto) Abs Immat Gran (auto) Absolute Neuts (auto) Absolute Nucleated RBC Nucleated RBC % (auto) PT INR APTT Anion Gap 17 Estim Creat Clear Calc 51.5 Estimated GFR 53 POC Glucose Random Glucose 153 H Calcium 9.2 Total Creatine Kinase 66 Troponin I High Sens 135.4 H* COVID-19 (NEELA) Negative COVID-19 Clin Com See Note Imaging Radiologist's Impressions: Impressions Head CT 05/26/22 09:35 IMPRESSION: No acute findings. Postsurgical changes to the left frontal bone and large area of encephalomalacia of the left frontal and temporal lobes. This critical result was discussed with Dr. Ellis at 0945 hours on 05/26/2022. It was ascertained that the content and urgency of the report was understood at the time of direct communication. Head/Neck CTA 05/26/22 09:40 IMPRESSION: There are chronic postcraniotomy changes with corresponding gliosis and encephalomalacia primarily involving the left frontal lobe. There are also smaller foci of chronic encephalomalacia involving the right superior frontal gyrus and the left anterior temporal lobe. No acute intracranial finding. Specifically no evidence of acute territorial infarct or hemorrhage. No abnormal intracranial mass or enhancement. Cervical carotid and vertebral arteries are widely patent. No intracranial large vessel occlusion. 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 #Suspected CVA -Head CT and head neck/CTA without acute abnormality -Last known well time around midnight without change in deficits -MRI brain ordered -Failed nursing bedside swallow eval. 320mg ME asa ordered. Continue asa 81mg daily -PT/OT/SUMMER COUNSELOR eval ordered -Lipid panel pending. Atrovastatin 80mg daily pending SUMMER COUNSELOR eval -Echo pending -Appreciate neuro eval #Encephalopathy- likely related to CVA -Pt is ambulatory with clear speech at baseline, baseline orientation unknown -Rule out other possible causes of encephalopathy (toxic vs metabolic) -Less likely related to seizure. Will check lactic acid and continue seizure precautions -No leukocytosis, VSS- no sepsis. UA and CXR ordered -Urine drug screen pending. Keppra level pending -Monitor mentation -Appreciate neuro input -Keep NPO for now #Unspecified psychosis/convulsions -Continue home meds -seizure precautions #Elevated troponin -Initial 135.4, repeat pending -EKG without acute ischemic changes -echo pending DVT prophylaxis-Lovenox Full code Patient requires inpatient stay of at least 2 midnights for management of encephalopathy likely related to acute CVA with aphasia requiring expert consultation and close monitoring Time Spent With Patient Time: Total time managing care of this patient today ____ minutes. Quality Stroke Does the patient have a stroke diagnosis?: Yes Reason for No Anti-thrombotic by Day Two: Drug treatment not indicated VTE Prior VTE?: No VTE Risk Level:: Medical - moderate - high VTE Device Contraindication: Treatment Not Indicated VTE Drug Contraindication: N/A - Med Ordered
--- NOTE | 2022-05-26 13:26 | PHA.MEDREC ---
Pharmacy Consult ? Medication Reconciliation Pharmacy has completed the medication reconciliation. Med rec complete using list from [facility]
[2022-05-26] MEDS: Aspirin 300 MG SUPP.RECT PR (14:01)
[2022-05-26] MEDS: Enoxaparin Sodium 40 MG/0.4 ML SYRINGE SUBCUT (14:01)
[2022-05-26] MEDS: 0.9 % Sodium Chloride 1,000 ML 100 ML IVCONT (14:02)
[2022-05-26 14:21] LABS: Cholesterol 212 mg/dL; HDL Cholesterol 37 mg/dL; LDL Cholesterol Calculated 155 mg/dl; Triglycerides 103 mg/dL
--- NOTE | 2022-05-26 14:28 | PC.NURSE ---
pt incontinent of urine multiple times, pt cleaned up and new bed linens changed over. pt will pull on medical equipment on and off, especially when he is soiled, pt moving all extremities but continuos on being aphasic
[2022-05-26] MEDS: 0.9 % Sodium Chloride Flush 3 ML SYRINGE IVFLUSH ×2 (14:59→20:05)
--- NOTE | 2022-05-26 15:04 | PC.NURSE ---
report given to ursula [place] rn
[2022-05-26 15:08] LABS: Lactic Acid 3.5 mmol/L (0.5-2.0)
[2022-05-26 15:15] LABS: Troponin-I High Sensitivity 165.8 ng/L (<3.5-35.0)
--- NOTE | 2022-05-26 15:51 | MHC.CM.PN ---
ASHWINI RN, YEN REDDY,CALLED. UPDATESGIVEN OVER PHONE. NO PLAN FOR DC TODAY
--- NOTE | 2022-05-26 16:11 | PM.NEUROCN ---
History of Present Illness Data of Consult Service Date: 05/26/22 Primary Care Provider: Mohamud Valdovinos DO HPI Reason for consult: Altered mental state This is a 67-year-old male from [facility] with history of TBI , unspecified psychosis and convulsions presented to the ED due to altered mental status, aphasia, weakness, and unsteady gait noted around midnight.? On arrival, patient is uncooperative and only will say single words ta times, unable to provide any history and not following commands. History obtained from ED staff and [facility]. Vital signs stable.? Hematology studies unremarkable.? Creatinine 1.35, BUN 20, electrolytes normal except for CO2 of 20.? Troponin 135.4, repeat pending.? EKG showing NSR, rate 93 with pulmonary disease pattern, no ST/T-wave abnormality.? Head CT without any acute intracranial findings which showing postsurgical changes of left frontal bone and large area of encephalomalacia of the left frontal and temporal lobes, right frontal smaller encephalomalacia.? Head/neck CTA with carotids and vertebral arteries and intracranial arteries are widely patent, no LVO. Pt has failed nursing swallow eval. Not a tpa candidate as there is no specific indication that this is a stroke. 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 Unspecified convulsions Family History Family History (Updated 05/26/22 @ 13:44 by CISCO Alvarez) Other Family history unknown Social History Social History Are you a primary care analyst to a significant other at home: No Do you presently have visiting nurse or other home services: No Alcohol intake: unknown Patient Tobacco Use Status: Former Tobacco user Advance Directives: No Advance Directives Information Provided: No Advance Directives Date on File: 06/14/09 Meds Allergies Allergy/AdvReac Type Severity Reaction Status Date / Time insulin aspart Allergy Unknown Verified 04/18/21 08:54 Penicillins Allergy Unknown Verified 04/18/21 08:54 Active Medications: Current Medications Aspirin (Aspirin Enteric Coated 81 Mg Tablet.Dr) 81 mg PO DAILY [facility] Atorvastatin Calcium (Atorvastatin Calcium 80 Mg Tablet) 80 mg PO DAILY [facility] Enoxaparin Sodium (Enoxaparin Sodium 40 Mg/0.4 Ml Syringe) 40 mg SUBCUT Q24H [facility] Last Admin: 05/26/22 14:01 Dose: 40 mg Sodium Chloride (Ns) 1,000 mls @ 100 mls/hr IVCONT .Q10H [facility] Last Admin: 05/26/22 14:02 Dose: 100 mls/hr Levetiracetam 375 mg/ Sodium (Chloride) 103.75 mls @ 410 mls/hr IV Q12H [facility] Last Infusion: 05/26/22 16:04 Dose: Infused Lorazepam (Lorazepam 2 Mg/Ml Vial) 1 mg IVPUSH STAT STA Stop: 05/26/22 16:03 Ondansetron HCl (Ondansetron Hcl 4 Mg/2 Ml Vial) 4 mg IVPUSH Q8H PRN PRN Reason: Nausea and Vomiting Pharmacy Consult (Consult Rx Perform Med Rec) 1 each MISCELLANE ONCE PRN PRN Reason: Consult order Sodium Chloride (0.9 % Sodium Chloride Flush 3 Ml Syringe) 3 ml IVFLUSH QSHIFT [facility] Last Admin: 05/26/22 14:59 Dose: 3 ml Home Medications Medication Instructions Recorded Confirmed Last Taken Type acetaminophen 325 mg tablet 650 mg PO Q4H PRN Pain 04/18/21 05/26/22 Unknown History benztropine 1 mg tablet 1 mg PO BID 04/18/21 05/26/22 09/26/21 History haloperidol decanoate 0.75 ml IM .[id number] 04/18/21 05/26/22 05/06/22 History levetiracetam 750 mg tablet 375 mg PO BID 04/18/21 05/26/22 09/26/21 History (Ryena) Physical Exam Vital Signs: Vital Signs: Last Vital Signs Temp 98.3 F 05/26/22 15:55 Pulse 108 H 05/26/22 15:55 Resp 17 05/26/22 15:55 BP 146/83 H 05/26/22 15:55 Pulse Ox 100 05/26/22 15:55 O2 Del Method 05/26/22 15:55 BMI result Body Mass Index 22.3 Const: Other: chronically ill appearing Nutritional Appearance: average body habitus Limitations: altered mental status and other limitations (aphasic) HEENT: Head: Yes normal to inspection Ears: external ears normal General nose exam: Normal external nose present Mouth: Normal oral and palatal mucosa present and oropharynx normal Throat: Yes posterior oropharynx normal Eyes: General: appearance normal, both eyes and all related structures Neck: Other: supple Neck: Yes normal visual inspection Chest: Chest palpation & inspection: normal inspection of the chest Resp: Auscultation: clear to auscultation bilaterally Cardio: Jugular venous distension: no JVD Rate: regular rate Rhythm: regular rhythm Heart sounds: S1 normal heart sound present and S2 normal heart sound present GI: Inspection: Yes normal to inspection Palpation (GI): Soft to palpation, nontender and No hepatosplenomegaly present Auscultation: normal bowel sounds : General: Yes no CVA tenderness Back/Spine/Pelvis: Back: no CVA tenderness Skin: General skin exam: no rashes or lesions noted Neuro: Other: The patient is arousable but poorly cooperative refers to sleep with his head covered and does not like to be disturbed. When I asked him what he felt he said sleepy and other than that he did not out any of the words could not tell me his name and did not follow commands. He moved all 4 extremities against gravity. Reflexes symmetrical plantar response is flexor. Neck is supple Cranial nerves: Yes CN's II-XII intact bilaterally Motor exam (neuro): 5/5 motor strength present throughout Sensory Exam: No Sensory deficit (Neuro) Extrem: General: Yes normal to inspection Psych: Other: flat affect occaisionally agitated Appearance: grossly normal Results Labs 05/26/22 08:08 05/26/22 08:08 Labs: Short CBC 05/26/22 Range/Units 08:08 WBC 10.5 (4.8-10.8) X10*3/uL Hgb 15.5 (14.0-18.0) g/dl Hct 44.0 (42.0-52.0) % Plt Count 205 (160-400) X10*3/uL BMP 05/26/22 08:08 Sodium 138 Potassium 4.1 Chloride 105 Carbon Dioxide 20 L BUN 20 H Creatinine 1.35 Calcium 9.2 Cardiac Enzymes 05/26/22 Range/Units 08:08 Total Creatine Kinase 66 (38-174) U/L Assessment and Plan (1) Aphasia: Status: Acute (2) Encephalopathy: Status: Acute Probable unwitnessed seizure with postictal state. No evidence of stroke. Baseline traumatic brain injury Recommendation: EEG. Continue Keppra. Keppra level is pending. 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 #Suspected CVA -Head CT and head neck/CTA without acute abnormality -Last known well time around midnight without change in deficits -MRI brain ordered -Failed nursing bedside swallow eval. 320mg WA asa ordered. Continue asa 81mg daily -PT/OT/ICE PLANT OPERATOR eval ordered -Lipid panel pending. Atrovastatin 80mg daily pending ICE PLANT OPERATOR eval -Echo pending -Appreciate neuro eval #Encephalopathy- likely related to CVA -Pt is ambulatory with clear speech at baseline, baseline orientation unknown -Rule out other possible causes of encephalopathy (toxic vs metabolic) -Less likely related to seizure. Will check lactic acid and continue seizure precautions -No leukocytosis, VSS- no sepsis. UA and CXR ordered -Urine drug screen pending. Keppra level pending -Monitor mentation -Appreciate neuro input -Keep NPO for now #Unspecified psychosis/convulsions -Continue home meds -seizure precautions #Elevated troponin -Initial 135.4, repeat pending -EKG without acute ischemic changes -echo pending DVT prophylaxis-Lovenox Full code Patient requires inpatient stay of at least 2 midnights for management of encephalopathy likely related to acute CVA with aphasia requiring expert consultation and close monitoring Time Spent With Patient Time: Total time managing care of this patient today ____ minutes. Procedures Date of Service Date of Service: 05/26/22
--- NOTE | 2022-05-26 16:35 | MHC.SLORD ---
Speech Language Pathology Order Status: Attempted to see patient for Bedside Swallow this pm. Patient was uncooperative, attempting to get out of bed, not responsive to direction, visual prompt/cues. Per documentation with patient, baseline is regular/thin. Will re-attempt Wednesday, 05/27 a.m.
[2022-05-26 16:44] LABS: Reflex Lactate? Lactic Acid Added
--- NOTE | 2022-05-26 16:48 | PC.NURSE ---
this nurse accepted patient transfer from ED, pt is on seizure precautions and remains NPO, IV intact, Tele monitor applied, Camera put in room and bed alarm on, unable to complete all of the admission questions due to patients AMS and aphasia.
[2022-05-26] MEDS: Haloperidol Lactate 5 MG/ML VIAL IM (20:02)
[2022-05-26 20:45] LABS: ~Lactic Acid-LAB USE ONLY 5.7 mmol/L (0.5-2.0)
[2022-05-26 21:47] LABS: Reflex Lactate? 2 Y
[2022-05-26] MEDS: diphenhydrAMINE HCL 50 MG/ML VIAL 25 MG IVPUSH (23:15)
--- NOTE | 2022-05-27 | EEG_ITS ---
This is a 16 channel EEG with an EKG lead. The patient is reported awake, confused, and drowsy during the tracing. Background EEG rhythm is mixed theta, beta with low to medium amplitude with no obvious asymmetry or paroxysmal tendency. Photic stimulation and hyperventilation were not performed. Cardiac lead did not reveal any significant abnormality. No sharp wave spikes or paroxysmal tendencies noted. IMPRESSION: Generalized slowing with no evidence of seizure disorder. MD ISMAEL Hay/BIANCA / [id number]
[2022-05-27] MEDS: 0.9 % Sodium Chloride 1,000 ML 100 ML IVCONT (01:38)
[2022-05-27 03:00] VITALS: BP 142/86; PULSE 87; RESP 16; TEMP 36.8; O2SAT 98
[2022-05-27 06:18] LABS: MANUAL DIFF FLAG NO
[2022-05-27 06:31] LABS: ~Lactic Acid-LAB USE ONLY 0.8 mmol/L (0.5-2.0)
[2022-05-27 06:50] LABS: Basophils Percent Auto 0.3 % (0-2); Eosinophils Percent Auto 0.1 % (0-4); Hematocrit 39.7 % (42.0-52.0); Hemoglobin 13.9 g/dl (14.0-18.0); Imm Gran Abs Auto 0.02 X10*3/uL (0.00-0.03); Imm Gran Pct Auto 0.3 % (0.0-0.4); Lymphocytes Absolute Auto 1.4 X10*3/uL (1.2-4.9); Lymphocytes Percent Auto 18.7 % (20-40); Mean Corpuscular Hemoglobin 28.8 pg (27.0-33.0); Mean Corpuscular Volume 82.4 fL (80.0-98.0); Mean Platelet Volume 9.4 fL (9.4-12.4); Monocytes Absolute Auto 0.7 X10*3/uL (0.1-1.2); Monocytes Percent Auto 9.7 % (2-11); Neutrophils Absolute Auto 5.3 x10*3/uL (2.0-8.3); Neutrophils Percent Auto 70.9 % (45-73); Platelet Count 194 X10*3/uL (160-400); Red Blood Count 4.82 X10*6/uL (4.60-5.80); Red Cell Distribution Width 13.4 % (11.0-16.0); White Blood Count 7.5 X10*3/uL (4.8-10.8)
[2022-05-27 06:57] LABS: Anion Gap 11 (12-20); Blood Urea Nitrogen 17 mg/dL (9-16); Calcium 8.1 mg/dL (8.4-10.2); Carbon Dioxide 20 mmol/L (22-29); Chloride 113 mmol/L (96-108); Creatinine Clr Calc Pharmacy 59.4; Estimated Glomerular Filt Rate > 60; Glucose Random 98 mg/dL (60-115); Potassium 4.2 mmol/L (3.3-5.1); Sodium 140 mmol/L (135-145)
--- NOTE | 2022-05-27 07:00 | CA_ITS ---
Transthoracic Echocardiogram Patient (Last, First, Middle): Pieter Ventura, Gender: Male Date of : 1955 Age: 67 Procedure Date: 05/26/2022 Procedure Type: Transthoracic Echocardiogram Location: S3E Height: 167.64 cm Weight: 68.49 kg BSA: 1.77 m2 Heart Rate: bpm BP: 140 / 87 mmHg Bagging Salvager: Referring MD: Lisebth PECK Symptoms: cva Study Quality: Fair ECG Rhythm: Sinus Conclusions: - The left ventricular systolic function is normal. The visually estimated ejection fraction is between 65-70%. - No obvious valvular pathology seen on this study. - There is a small loculated pericardial effusion overlying the right ventricle. Findings Left Ventricle Normal left ventricular cavity size. There is mildly increased left ventricular wall thickness. The left ventricular systolic function is normal. The visually estimated ejection fraction is between 65-70%. There is no evidence of regional wall motion abnormalities. Diastolic function is normal for age. Right Ventricle Normal right ventricular cavity size and systolic function. Atria Both atria are normal in size. Aortic Valve There is a normal trileaflet aortic valve. There is no aortic valve stenosis. There is no aortic valve regurgitation. Mitral Valve The mitral valve appears normal. There is no mitral valve regurgitation. There is no mitral valve stenosis. Pulmonic Valve The pulmonic valve is likely normal. Tricuspid Valve Normal tricuspid valve structure. There is trace tricuspid valve regurgitation. There is no evidence of pulmonary hypertension. Great Vessels The asc aorta is normal in size. Venous The inferior vena cava is normal in size and collapses greater than 50% with inspiration. Pericardium/Pleural There is a small loculated pericardial effusion overlying the right ventricle. Prior Study Comparison No prior study available for comparison. Recommendations, Care & Conclusions No obvious valvular pathology seen on this study. Measurements 2D Linear Measurements IVSd: 1.12 0.6-0.9/0.6-1.0 cm LVIDd: 3.47 3.9-5.3/4.2-5.9 cm LVIDd Index: 1.96 2.4-3.2/2.2-3.1 cm/m2 LVIDs: 1.92 2.0-3.6 cm LVPWd: 1.04 0.7-1.1 cm Ao Root: 3.20 2.1-3.5 cm LA Diam: 2.60 2.7-3.8/3.0-4.0 cm LAIDs Index: 1.47 1.5-2.3 cm/m2 LV Mass: 142.14 67-162/88-224 g LV Mass Index: 80.30 43-95/49-115 g/m2 LVOT Diam: 2.00 3.0+(-)1.3 cm Mitral Valve MV Pk E: 0.52 MV PK A: 0.56 MV Decel Time: 157.00 E/A: 0.90 E'Lateral: 9.36 E'Medial: 5.77 E/E' Med: 9.00 E/E' Lat: 5.60 PHT: 46.00 MVA PHT: 4.78 Decel Elmore: 3.32 Aortic Valve AoV Pk King: 0.82 AoV Mn King: 0.56 AoV VTI: 0.20 AoV Pk Grad: 3.00 Aov Mn Grad: 1.00 VIKASH Cont.VTI: 1.86 LVOT LVOT Pk King: 0.45 LVOT Mn King: 0.27 LVOT VTI: 0.12 LVOT Pk Grad: 1.00 LVOT Mn Grad: 0.00 LVOT Diam: 2.00 LVOT Area: 3.14 Diastolic Function MV Pk E: 0.52 MV Pk A: 0.56 E/A: 0.90 E'Medial: 5.77 E/E' Med: 9.00 E' Laterial: 9.36 E/E' Lat: 5.60 Right Ventricle TAPSE (mm): 18.00 Tricuspid Valve TR Pk King: 1.92 TR Pk Grad: 15.00 RA Press: 3.00 RVSP: 18.00 Great Vessels Aorta Ao Root-2D: 3.20 2.0-3.7 cm Ao Asc: 3.40 2.1-3.4 cm Pulmonary Valve PV Pk King: 0.87 Peak PV Grad: 3.00 Updated in Other Vendor System with Status of Final Wojciech Brennan MD electronically signed on 05/27/2022 12:38:00 PM with status of Final
[2022-05-27 08:24] VITALS: BP 149/81; PULSE 89; RESP 18; TEMP 36.8; O2SAT 97
--- NOTE | 2022-05-27 10:51 | MHC.SLORD ---
Addendum entered and electronically signed by Madai Peralta MA, CCC-PULP GRINDER AND BLENDER 05/27/22 17:00: D.S. Original Note: Speech Language Pathology Order Status: Per MD, PULP GRINDER AND BLENDER evaluation not needed & to be cancelled.
--- NOTE | 2022-05-27 11:47 | MHC.CM.PN ---
CM ATTEMPTED TO CONTACT PT'S GUARDIAN LAURA [facility] AT 11:20AM [phone] HOWEVER NO ANSWER AND MAILBOX FULL, CM ATTEMPTED TO CONTACT PT'S BROTHER AT NUMBER ON FILE AND SECONDARY CONTACT, PT'S NEPHEW ANSWERED PHONE AND REPORTED PT'S BROTHER HAS NEW PHONE [phone], CM ATTMPTED TO CONTACT PT'S BROTHER HOWEVER NO ANSWER AND DETAILED MESSAGE LEFT. PER HOSPITALIST PT TO HAVE EEG PRIOR TO D/C BACK TO [facility]. CM WILL CONT TO FOLLOW D/C NEEDS
[2022-05-27 12:00] VITALS: BP 152/82; PULSE 74; RESP 18; TEMP 36.3; O2SAT 97
--- NOTE | 2022-05-27 13:36 | MHC.CM.PN ---
Pt medically cleared to return to [facility] jerry Doshi contacted pt's brother Robert at 1:30pm and he is agreeable to plan just requested to speak w/hospitalist who has been made aware via [facility] for transport at 5pm
--- NOTE | 2022-05-27 13:57 | PM.DS ---
DS: Providers Provider Date of Service: 05/27/22 Date of admission: 05/26/22 13:26 Date of discharge: 05/27/22 Primary care physician: Mohamud Valdovinos DO Consults: 05/26/22 07:56 Consult to Neurology Stat Consulting Provider: [facility] Reason for consultation: татьяна Has provider been notified: No 05/26/22 13:25 Consult to Neurology Routine Consulting Provider: Neurology [facility] Reason for consultation: ?stroke DS: Diagnosis Discharge Diagnosis (1) Seizure: Status: Acute (2) Aphasia: Status: Acute (3) Encephalopathy: Status: Acute DS: Summary Hospital Course Hospital Course: 67-year-old male from [facility] with history of age related nuclear cataracts, concussion with loss of consciousness, history of intracranial injury without loss of consciousness, 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 On arrival, patient aphasic unable to provide much history and not responding to commands. History obtained from ED staff and [facility] notes. Vital signs stable.? Hematology studies unremarkable.? Creatinine 1.35, BUN 20, electrolytes normal except for CO2 of 20.? Troponin 135.4, repeat pending.? EKG showing NSR, rate 93 with pulmonary disease pattern, no ST/T-wave abnormality.? Head CT without any acute intracranial findings which showing postsurgical changes of left frontal bone and large area of encephalomalacia of the left frontal and temporal lobes.? Head/neck CTA with similar chronic post craniotomy changes but no acute intracranial finding including infarct or hemorrhage.? There is no abnormal intracranial mass or enhancement and carotids and vertebral arteries are widely patent, no LVO. Pt has failed nursing swallow eval. Discussion had with stroke team, not a tpa candidate. Given persistent encephalopathy and aphasia, patient will be admitted for suspected acute CVA and further work up. Hospital Course Admitted to general medical floor and seen in consultation by Neurology. Neurology recommended Keppra level which is pending an EEG which is done this a.m. and will be read later today. We all agree this was likely seizure with postictal state as workup was negative. Plan will be return to [facility] with an increasing Keppra to 750 b.i.d. and I will follow him there. Time Spent with Patient Time attestation: Total time managing care of this patient today ____ minutes. Discharge coordination time: Greater than 30 minutes Quality: Safe Use of Opioids Does Pt have an Active Cancer Diagnosis on the Problem List?: No Quality: Stroke Does the patient have a stroke diagnosis?: No Physical Exam Vital Signs: Vital Signs: Last Vital Signs Temp 97.3 F 05/27/22 12:00 Pulse 74 05/27/22 12:00 Resp 18 05/27/22 12:00 BP 152/82 H 05/27/22 12:00 Pulse Ox 97 05/27/22 12:00 O2 Del Method 05/27/22 12:00 BMI result Body Mass Index 22.3 Const: Other: Awake alert; (back to baseline) Resp: Other: Clear to auscultation bilaterally no rales rhonchi wheezes Cardio: Other: No S4; positive S1-S2; no S3 murmurs rubs or gallops GI: Other: Soft nontender nondistended normoactive bowel sounds Neuro: Other: Cranial nerves 2-12 grossly intact as tested. Motor is 5/5 in all extremities. Sensation is intact. Cognition at baseline Extrem: Other: No edema bilaterally DS: Data Data Completed and Pending Labs on day of discharge: Laboratory Results - last 24 hr 05/26/22 05/26/22 05/26/22 08:08 14:40 14:40 WBC RBC Hgb Hct MCV MCH MCHC RDW Plt Count MPV Immature Gran % (Auto) Neut % (Auto) Lymph % (Auto) Taney % (Auto) Eos % (Auto) Baso % (Auto) Lymph # (Auto) Taney # (Auto) Eos # (Auto) Baso # (Auto) Abs Immat Gran (auto) Absolute Neuts (auto) Absolute Nucleated RBC Nucleated RBC % (auto) Sodium Potassium Chloride Carbon Dioxide Anion Gap BUN Creatinine Estim Creat Clear Calc Estimated GFR Random Glucose Lactic Acid 3.5 H* Lactic Acid F/U @ 2Hr Lactic Acid F/U @ 4Hr Calcium Troponin I High Sens 165.8 H* Triglycerides 103 Cholesterol 212 LDL Cholesterol, Calc 155 HDL Cholesterol 37 05/26/22 05/26/22 05/27/22 16:18 19:31 06:15 WBC RBC Hgb Hct MCV MCH MCHC RDW Plt Count MPV Immature Gran % (Auto) Neut % (Auto) Lymph % (Auto) Taney % (Auto) Eos % (Auto) Baso % (Auto) Lymph # (Auto) Taney # (Auto) Eos # (Auto) Baso # (Auto) Abs Immat Gran (auto) Absolute Neuts (auto) Absolute Nucleated RBC Nucleated RBC % (auto) Sodium Potassium Chloride Carbon Dioxide Anion Gap BUN Creatinine Estim Creat Clear Calc Estimated GFR Random Glucose Lactic Acid Cancelled Lactic Acid F/U @ 2Hr 5.7 H* Lactic Acid F/U @ 4Hr 0.8 Calcium Troponin I High Sens Triglycerides Cholesterol LDL Cholesterol, Calc HDL Cholesterol 05/27/22 05/27/22 06:15 06:15 WBC 7.5 RBC 4.82 Hgb 13.9 L Hct 39.7 L MCV 82.4 MCH 28.8 MCHC 35.0 RDW 13.4 Plt Count 194 MPV 9.4 Immature Gran % (Auto) 0.3 Neut % (Auto) 70.9 Lymph % (Auto) 18.7 L Taney % (Auto) 9.7 Eos % (Auto) 0.1 Baso % (Auto) 0.3 Lymph # (Auto) 1.4 Taney # (Auto) 0.7 Eos # (Auto) 0.0 Baso # (Auto) 0.0 Abs Immat Gran (auto) 0.02 Absolute Neuts (auto) 5.3 Absolute Nucleated RBC 0.000 Nucleated RBC % (auto) 0.0 Sodium 140 Potassium 4.2 Chloride 113 H Carbon Dioxide 20 L Anion Gap 11 L BUN 17 H Creatinine 1.17 Estim Creat Clear Calc 59.4 Estimated GFR > 60 Random Glucose 98 Lactic Acid Lactic Acid F/U @ 2Hr Lactic Acid F/U @ 4Hr Calcium 8.1 L D Troponin I High Sens Triglycerides Cholesterol LDL Cholesterol, Calc HDL Cholesterol Discharge Plan Discharge Patient Disposition: er [facility] Discharge Diagnosis: Seizure Referrals: [facility] [Outside] - 1 Day (RESUMPTIN OF CARE) Mohamud Valdovinos DO [Primary Care Provider] - 1 Week Discharge Medications: New aspirin 81 mg Tablet,Delayed Release (Dr/Ec) 81 mg PO DAILY Qty: 30 0RF levetiracetam [Keppra] 750 mg tablet 750 mg PO BID Qty: 60 0RF Continued acetaminophen 325 mg Tablet 650 mg PO Q4H PRN (Reason: Pain) benztropine 1 mg Tablet 1 mg PO BID haloperidol decanoate 50 mg/ml 0.75 ml IM .[id number] Discontinued levetiracetam [Keppra] 750 mg Tablet 375 mg PO BID Discharge Orders: Discharge Order (Routine); Ordered 05/27/22 Ordered By: Mohamud Valdovinos Diet: Advance to usual diet Activity on Discharge: As tolerated Stand Alone Forms: Patient Portal Discharge page Care Plan Goals: Return to [facility] and resume all previous therapies Health Concerns: EEG done, results pending. Plan of Treatment: Increase Keppra to 750 b.i.d.; levels done in hospital pending Assessment: See discharge summary
[2022-05-27] MEDS: Enoxaparin Sodium 40 MG/0.4 ML SYRINGE SUBCUT (14:51)
[2022-05-27] MEDS: 0.9 % Sodium Chloride Flush 3 ML SYRINGE IVFLUSH (14:52)
[2022-05-27 15:25] VITALS: BP 143/82; PULSE 75; RESP 16; TEMP 36.1; O2SAT 96
[2022-05-28 16:53] LABS: Levetiracetam Keppra 8.4 mcg/mL (6.0-46.0)
== END 2022-05-27 18:01 | DRG 53 ==
LOC: HO.ED 11:24 → HO.EDOVER 13:27 → HO.S3 14:48
PROVIDERS: Admitting Provider Physician Assistant; Emergency Provider Emergency Medicine; PCP Hospitalist; Visit Provider Hospitalist
DX: R56.9 Unspecified convulsions (principal); R47.01 Aphasia; Z20.822 Contact with and (suspected) exposure to COVID-19; Z87.820 Personal history of traumatic brain injury; Z88.0 Allergy status to penicillin; Z88.8 Allergy status to other drugs, medicaments and biological substances; Z79.899 Other long term (current) drug therapy
CPT/HCPCS: 36415; 70450; 70496; 70498; 71045; 74018; 80048; 80061; 80177; 82550; 82947; 83605; 84484; 85025; 85610; 85730; 87635; 93005; 93306; 95816; 97161; 97166; 99285; J1200; J1650; J1953; J2060; Q9957; Q9967

== ENCOUNTER 2022-06-24 10:54 | Outpatient (REF) | payer MEDICAID, SELFPAY ==
--- NOTE | ~2022-06-24 | CT_ITS ---
EXAMINATION: CT CHEST WITH CONTRAST CLINICAL INFORMATION: Abnormal chest x-ray COMPARISON: Chest x-ray dated 05/26/2022 TECHNIQUE: Multidetector volumetric CT imaging of the chest was obtained after the administration of 65 mL of Omnipaque 350 intravenous contrast without immediate adverse reactions. Axial MIP volume rendering provided. Sagittal and coronal reformatted images were obtained. This CT examination was performed using dose optimization techniques as appropriate, variously including the following: *Automated exposure control *Adjustment of mA and/or kV according to patient size (this includes techniques or standardized protocols for targeted exams where dose is matched to indication/reason for exam; i.e. extremities or head) *Use of iterative reconstruction technique DLP: 117.29 mGy-cm FINDINGS: LUNGS: Left upper lobe 1.6 x 1.5 cm solid pulmonary nodule (9:89). Central airways are patent. MEDIASTINUM: No mediastinal adenopathy. No hilar adenopathy. Dense coronary artery atherosclerotic calcifications of the left anterior descending artery. PLEURA: There is no pleural effusion. No pleural mass or thickening. AXILLA: No lymphadenopathy. UPPER ABDOMEN: Benign-appearing bilateral renal cysts. OSSEOUS STRUCTURES/SOFT TISSUES: Unremarkable. CT/CT chest w IV con IMPRESSION: Left upper lobe 1.6 cm solid pulmonary nodule. In the absence of known history of cancer, recommend follow-up per Fleischner guidelines. According to the UPDATED 2017 Fleischner Society recommendations, the advised followup imaging for a single solid nodule measuring 8 mm or greater is: Consider CT, PET/CT, or tissue sampling at 3 months..
[2022-06-24] MEDS: iohexoL 350 MG/ML 100 ML INFUS..BTL IV (12:00)
== END 2022-06-24 10:55 | disposition home or self-care (01) ==
LOC: HO.CT 10:54
PROVIDERS: PCP Hospitalist; Visit Provider Hospitalist
DX: R91.8 Other nonspecific abnormal finding of lung field (principal)
CPT/HCPCS: 71260; Q9967

== ENCOUNTER → 2022-09-15 11:50 | Day surgery (SDC) | payer MEDICAID, SELFPAY ==
[2022-09-15] VITALS (8 sets, daily range): BP systolic 109–134; BP diastolic 61–86; PULSE 56–65; RESP 15–17; TEMP 36.1–36.2; O2SAT 94–98; BMI 22.8
--- NOTE | ~2022-09-15 | CT_ITS ---
PROCEDURE: CT GUIDED BIOPSY, LUNG CLINICAL INFORMATION: Left lung mass COMPARISON: Previous chest CT June 2022 TECHNIQUE: Procedure risks and benefits including bleeding, infection and pneumothorax were discussed by telephone with the patient's healthcare proxy and with the patient in person and informed consent was obtained. The patient was positioned in the left decubitus position. Axial images through the chest were obtained. The left back was prepped and draped in usual sterile fashion. The skin and soft tissues were anesthetized with 1% lidocaine plain. Using CT guidance and a coaxial system, access to the nodule in the superior segment of the left lower lobe was obtained. 3 20-gauge core biopsies were obtained. Specimen was placed in formalin and sent for microbiology testing as well. Patient received Versed 0.5 mg and fentanyl 25 mcg intravenously during the procedure. Continuous hemodynamic monitoring was provided by registered nurse under my direct supervision. Total sedation [id number] contact time was [address] examination was performed using dose optimization techniques as appropriate, variously including the following: *Automated exposure control *Adjustment of mA and/or kV according to patient size (this includes techniques or standardized protocols for targeted exams where dose is matched to indication/reason for exam; i.e. extremities or head) *Use of iterative reconstruction technique DLP: 103 mGy-cm FINDINGS: There is a 1 cm superior segment left lower lobe nodule that was targeted for fine-needle aspiration. Postprocedure imaging demonstrates some surrounding perilesional hemorrhage. There is no pneumothorax. CT/CT biopsy lung LT IMPRESSION: CT-guided superior segment left lower lobe nodule biopsy.
--- NOTE | ~2022-09-15 | XR_ITS ---
EXAMINATION: XR CHEST CLINICAL INFORMATION: Post left lung biopsy. Rule out pneumothorax COMPARISON: Previous chest x-ray most recent May 2020 TECHNIQUE: Frontal view of the chest was obtained. FINDINGS: No pneumothorax post left lung biopsy. There is increased density in the left midlung corresponding to known left pulmonary nodule. There may be some surrounding perilesional hemorrhage. There is subsegmental atelectasis at the left lung base. The lungs are otherwise clear. The cardiac and mediastinal contours are stable. No pleural effusion. Old right posterior fourth rib fracture. XR/XR chest 1V IMPRESSION: No pneumothorax post left lung biopsy.
[2022-09-15 12:23] LABS: MANUAL DIFF FLAG NO
[2022-09-15 12:26] LABS: Basophils Percent Auto 0.3 % (0-2); Eosinophils Absolute Auto 0.1 X10*3/uL (0.0-0.4); Eosinophils Percent Auto 1.2 % (0-4); Hemoglobin 15.2 g/dl (14.0-18.0); Imm Gran Abs Auto 0.01 X10*3/uL (0.00-0.03); Imm Gran Pct Auto 0.2 % (0.0-0.4); Lymphocytes Absolute Auto 2.5 X10*3/uL (1.2-4.9); Lymphocytes Percent Auto 44.3 % (20-40); Mean Corpuscular HGB Conc 34.5 g/dl (31.0-36.0); Mean Corpuscular Hemoglobin 28.6 pg (27.0-33.0); Mean Corpuscular Volume 82.9 fL (80.0-98.0); Mean Platelet Volume 9.9 fL (9.4-12.4); Monocytes Absolute Auto 0.6 X10*3/uL (0.1-1.2); Monocytes Percent Auto 10.8 % (2-11); Neutrophils Absolute Auto 2.5 x10*3/uL (2.0-8.3); Neutrophils Percent Auto 43.2 % (45-73); Platelet Count 233 X10*3/uL (160-400); Red Blood Count 5.31 X10*6/uL (4.60-5.80); Red Cell Distribution Width 13.4 % (11.0-16.0); White Blood Count 5.7 X10*3/uL (4.8-10.8)
[2022-09-15 12:36] LABS: Prothrombin Time 11.4 SEC (10.0-13.1)
[2022-09-15 12:38] LABS: Partial Thromboplastin Time 28.2 SEC (26.0-36.4)
--- NOTE | 2022-09-15 16:51 | PC.NURSE ---
report provided to [facility]. questions asked and answered. .Discharged with care team assistant
== END | disposition home or self-care (01) ==
PROVIDERS: Radiology Diagnostic Radiology; PCP Hospitalist; Visit Provider Radiology Diagnostic Radiology
DX: R91.1 Solitary pulmonary nodule (principal); J84.10 Pulmonary fibrosis, unspecified; F29 Unspecified psychosis not due to a substance or known physiological condition; F07.0 Personality change due to known physiological condition; R56.9 Unspecified convulsions; Z79.899 Other long term (current) drug therapy; Z79.82 Long term (current) use of aspirin; Z88.0 Allergy status to penicillin; Z88.8 Allergy status to other drugs, medicaments and biological substances
CPT/HCPCS: 32408; 36415; 71045; 85025; 85610; 85730; 87071; 87205; 88305; 99152; 99153; J2250; J3010

== ENCOUNTER 2023-05-10 09:55 | Day surgery (SDC) | payer MEDICAID, SELFPAY ==
--- NOTE | 2023-05-07 09:09 | HO.ANESPROP2 ---
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 Family History Family History (Updated 05/26/22 @ 13:44 by CISCO Alvarez) Other Family history unknown Family history of problems with anesthesia: No Surgical History Surgical History (Updated 05/06/23 @ 14:19 by Miriam Sanchez RN) History of surgery of head H/O colonoscopy History of Problems with Anesthesia: No Social History Social History Household Members: Unknown / Unable to assess Housing: Unknown / Unable to assess Are you a primary career placement services counselor to a significant other at home: No Do you presently have visiting nurse or other home services: No Unable to assess alcohol history related to: Unknown Alcohol intake: unknown Patient Tobacco Use Status: Tobacco use Unknown Advance Directives Date on File: 06/14/09 service: No Meds Allergies Allergy/AdvReac Type Severity Reaction Status Date / Time insulin aspart Allergy Unknown Verified 09/15/22 12:46 Penicillins Allergy Unknown Verified 09/15/22 12:46 Home Medications Medication Instructions Recorded Confirmed Last Taken Type acetaminophen 325 mg tablet 650 mg PO Q4H PRN Pain 04/18/21 05/26/22 Unknown History benztropine 1 mg tablet 1 mg PO BID 04/18/21 05/26/22 09/26/21 History haloperidol decanoate 0.75 ml IM .[id number] 04/18/21 05/26/22 05/06/22 History Exam Narrative Narrative: ECHO 2022 Conclusions: - The left ventricular systolic function is normal. The visually estimated ejection fraction is between 65-70%. - No obvious valvular pathology seen on this study. - There is a small loculated pericardial effusion overlying the right ventricle. Assessment and Plan Assessment Anesthesia Assessment: Chart Reviewed Final Anesthetic Review Family History of Problems with Anesthesia: No History of Problems with Anesthesia: No
[2023-05-10 10:36] VITALS: BMI 22.0
--- NOTE | 2023-05-10 10:46 | HO.ANESPROP2 ---
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 Family History Family History Other Family history unknown Family history of problems with anesthesia: No Surgical History Surgical History History of surgery of head H/O colonoscopy History of Problems with Anesthesia: No Social History Social History Household Members: Unknown / Unable to assess Housing: Unknown / Unable to assess Are you a primary patient care associate to a significant other at home: No Do you presently have visiting nurse or other home services: No Unable to assess alcohol history related to: Unknown Alcohol intake: unknown Patient Tobacco Use Status: Former Tobacco user Use of substances other than those prescribed or required for medical reasons: No Are you DNR?: No Advance Directives: No Advance Directives Information Provided: Yes Advance Directives Date on File: 06/14/09 service: No Meds Allergies Allergy/AdvReac Type Severity Reaction Status Date / Time insulin aspart Allergy Unknown Verified 09/15/22 12:46 Penicillins Allergy Unknown Verified 09/15/22 12:46 Active Medications: Current Medications Lactated Ringer's (Lr) 1,000 mls @ 100 mls/hr IVCONT .Q10H CALEB Sodium Biphosphate/Sodium Phosphate (Sodium Phosphate,[place]-Dibasic 133 Ml Enema) 133 ml [place] ONCE PRN PRN Reason: Poor Colonoscopy Prep Results Home Medications Medication Instructions Recorded Confirmed Last Taken Type acetaminophen 325 mg tablet 650 mg PO Q4H PRN Pain 04/18/21 05/26/22 Unknown History benztropine 1 mg tablet 1 mg PO BID 04/18/21 05/26/22 09/26/21 History haloperidol decanoate 0.75 ml IM .[id number] 04/18/21 05/26/22 05/06/22 History Exam Height,Weight and Vital Signs: Height 5 ft 10 in Weight 69.626 kg Assessment and Plan Final Anesthetic Review Family History of Problems with Anesthesia: No History of Problems with Anesthesia: No
[2023-05-10 10:51] VITALS: BP 154/89; PULSE 81; RESP 16; TEMP 36.1; O2SAT 96
[2023-05-10] MEDS: Lactated Ringers 1,000 ML 100 ML IVCONT (11:02)
[2023-05-10] MEDS: Sodium Phosphate,Mono-Dibasic 133 ML ENEMA PR (11:02)
--- NOTE | 2023-05-10 11:10 | PC.NURSE ---
patient stated his output was dark brown. explained fleet enema medication. alireza well left lateral position. assisted patient to br. staff by bedside.
--- NOTE | 2023-05-10 11:20 | PC.NURSE ---
light yellow with sediment after fleet enema.
--- NOTE | 2023-05-10 11:23 | HO.ANESPROP2 ---
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 Family History Family History Other Family history unknown Family history of problems with anesthesia: No Surgical History Surgical History History of surgery of head H/O colonoscopy History of Problems with Anesthesia: No Social History Social History Household Members: Unknown / Unable to assess Housing: Unknown / Unable to assess Are you a primary small animal caretaker to a significant other at home: No Do you presently have visiting nurse or other home services: No Unable to assess alcohol history related to: Unknown Alcohol intake: unknown Patient Tobacco Use Status: Former Tobacco user Use of substances other than those prescribed or required for medical reasons: No Are you DNR?: No Advance Directives: No Advance Directives Information Provided: Yes Advance Directives Date on File: 06/14/09 service: No Meds Allergies Allergy/AdvReac Type Severity Reaction Status Date / Time insulin aspart Allergy Unknown Verified 09/15/22 12:46 Penicillins Allergy Unknown Verified 09/15/22 12:46 Active Medications: Current Medications Lactated Ringer's (Lr) 1,000 mls @ 100 mls/hr IVCONT .Q10H CALEB Last Admin: 05/10/23 11:02 Dose: 100 mls/hr Sodium Biphosphate/Sodium Phosphate (Sodium Phosphate,[place]-Dibasic 133 Ml Enema) 133 ml [place] ONCE PRN PRN Reason: Poor Colonoscopy Prep Results Last Admin: 05/10/23 11:02 Dose: 133 ml Home Medications Medication Instructions Recorded Confirmed Last Taken Type acetaminophen 325 mg tablet 650 mg PO Q4H PRN Pain 04/18/21 05/26/22 Unknown History benztropine 1 mg tablet 1 mg PO BID 04/18/21 05/26/22 09/26/21 History haloperidol decanoate 0.75 ml IM .[id number] 04/18/21 05/26/22 05/06/22 History Exam Height,Weight and Vital Signs: Height 5 ft 10 in Weight 69.626 kg Last Vital Signs Temp 96.9 F 05/10/23 10:51 Pulse 81 05/10/23 10:51 Resp 16 05/10/23 10:51 BP 154/89 H 05/10/23 10:51 Pulse Ox 96 05/10/23 10:51 O2 Del Method Room Air 05/10/23 10:51 Airway Mallampati Class: II TM Dist: >3cm Neck ROM: Full Loose/Missing/Broken Teeth: Yes Heart: RRR Lungs: CTA Assessment and Plan Assessment Anesthesia Assessment: Anesthesia Plan Discussed Final Anesthetic Review Family History of Problems with Anesthesia: No History of Problems with Anesthesia: No NPO: Yes ASA Class: III Final Preanesthetic Review: Meds/Allgs Chart Reviewed, Consent Obtained/Reviewed and Anes Risks/Benef Reviewed Patient Risk: Low Procedure Risk: Low Anesthetic Plan Anesthetic Plan: MAC: Disposition: Standard PACU
[2023-05-10 12:33] VITALS: BP 120/76; PULSE 114; RESP 16; TEMP 36.4; O2SAT 97
--- NOTE | 2023-05-10 12:37 | P.BOP_ITS ---
Brief Operative Note Date of Service: 05/10/23 Pre-op diagnosis: Screening Post-op diagnosis: other (Diverticulosis) Procedure: Colonoscopy to the cecum and TI Surgeon: Олег Loving MD Anesthesia: MAC Was an Station Baggage Agent used for this Procedure?: No Estimated blood loss (mL): 0 Pathology: none sent Condition: stable Disposition: PACU
[2023-05-10 12:48] VITALS: BP 144/94; PULSE 80; RESP 16; O2SAT 97
[2023-05-10 13:03] VITALS: BP 138/97; PULSE 76; RESP 16; TEMP 36.4; O2SAT 97
--- NOTE | 2023-05-10 13:47 | OP_ITS ---
DATE OF SERVICE: 05/10/2023 SURGEON: Олег Loving MD INDICATIONS: The patient presents for followup of colorectal cancer screening and personal history of a large tubulovillous adenoma of the colon. Full consent was obtained from him for this, including risks of bleeding and perforation. PREOPERATIVE DIAGNOSIS: POSTOPERATIVE DIAGNOSIS: PROCEDURE PERFORMED: Colonoscopy to the cecum and terminal ileum. ESTIMATED BLOOD LOSS: COMPLICATIONS: ANESTHESIA: Medication used: Monitored anesthesia care. ASSISTANTS: SPECIMENS: PREOPERATIVE DIAGNOSES: Colorectal cancer screening and personal history of large tubulovillous adenoma of the colon. POSTOPERATIVE DIAGNOSES: Colorectal cancer screening and personal history of large tubulovillous adenoma of the colon, diverticulosis, internal hemorrhoids. DESCRIPTION OF PROCEDURE: The patient was placed in the left lateral decubitus position. The digital rectal exam revealed no abnormalities. The Olympus video pediatric colonoscope was then entered into the rectum and advanced easily to the cecum. Once in the cecum, I did identify normal-appearing cecal pouch and a normal-appearing ileocecal valve. The terminal ileum was cannulated and appeared normal. Scope was withdrawn back in the colon. The entire cecum and ileocecal valve appeared normal. The scope was slowly withdrawn, assessing all mucosal surfaces carefully. Preparation was somewhat limited in various parts of the colon due to some retained solid stool and liquid. Irrigation and suctioning were done as much as possible. I was able to visualize the previously placed submucosal ink ragland at approximately 50-60 cm. This area was irrigated and I did not visualize any sign of residual polyp tissue between the markings. I did not visualize any other polyps, colitis, nor angiodysplasias, although again preparation was somewhat limited. In the rectum, scope was retroflexed, visualizing some internal hemorrhoids. The scope was straightened out and withdrawn from the patient. He tolerated the procedure well and was returned to the recovery area in stable condition. IMPRESSION: 1. Internal hemorrhoids. 2. Mild sigmoid diverticulosis. 3. No sign of residual polyp at area of previously placed submucosal markings between 50 and 60 cm. PLAN: Given the limited prep and his history, I would recommend a followup coloscopy in 2 years with a 2-day preparation. Although, on his most recent exam in 2021, I had down that the preparation was excellent. We would review that when I see him again in 2 years, but he most likely will need a 2-day prep. He was advised they could resume aspirin today. MD FARRAH Fernandez/BIANCA / [id number]
== END 2023-05-10 13:07 | disposition home or self-care (01) ==
PROVIDERS: PCP Hospitalist; Visit Provider Internal Medicine
PROC: 0DJD8ZZ Inspection of Lower Intestinal Tract, Via Natural or Artificial Opening Endoscopic (ICD-10-PCS; CPT 45378; principal; 2023-05-10 11:30)
DX: Z12.11 Encounter for screening for malignant neoplasm of colon (principal); Z86.010 Personal history of colon polyps; K57.30 Diverticulosis of large intestine without perforation or abscess without bleeding; K64.8 Other hemorrhoids; G40.909 Epilepsy, unspecified, not intractable, without status epilepticus; F29 Unspecified psychosis not due to a substance or known physiological condition; Z79.1 Long term (current) use of non-steroidal anti-inflammatories (NSAID); Z79.82 Long term (current) use of aspirin; Z79.899 Other long term (current) drug therapy
CPT/HCPCS: 45378; J2704

== ENCOUNTER 2023-12-02 15:16 | Inpatient (IN) | payer MEDICAID, SELFPAY ==
--- NOTE | ~2023-12-02 | CT_ITS ---
EXAMINATION: CT ABDOMEN AND PELVIS WITH CONTRAST CLINICAL INFORMATION: Abdomen pain, vomiting, hematochezia COMPARISON: None available. TECHNIQUE: Multidetector volumetric images were obtained from the superior aspect of the liver through the pubic symphysis following administration 85 mL of Omnipaque 350 intravenous contrast. Sagittal and coronal reformatted images were obtained on the technologist's workstation. Oral contrast: No This CT examination was performed using dose optimization techniques as appropriate, variously including the following: *Automated exposure control *Adjustment of mA and/or kV according to patient size (this includes techniques or standardized protocols for targeted exams where dose is matched to indication/reason for exam; i.e. extremities or head) *Use of iterative reconstruction technique DLP: 416 mGy-cm FINDINGS: LUNG BASES: There is a hiatal hernia or thickening of the visualized distal esophagus. There is no definite mediastinal gas. There is motion slightly limiting assessment at the region of the GE junction. No lower mediastinal abscess demonstrated. LIVER, GALLBLADDER, AND BILIARY TREE: No suspicious abnormality in the liver. There are tiny low attenuating areas at the tip of the right lobe. These could represent small cysts or hemangioma. The gallbladder is not distended. There is no opaque gallstone or pericholecystic fluid. There is no biliary dilation. PANCREAS: There is no pancreatic mass or peripancreatic collection. SPLEEN: No suspicious abnormality ADRENAL GLANDS: Within normal limits KIDNEYS AND URETERS: There is no dilation of the urinary collecting system on either side there are numerous bilateral varying-sized sharply circumscribed fluid attenuating and low attenuating renal masses. Most of these are simple cysts. No specific imaging follow-up is necessary. The nephrograms are symmetric. BLADDER: The prostate indents the bladder. The bladder is moderately distended. No focal bladder mass. GASTROINTESTINAL TRACT: There is a very large amount of fecal residue throughout the colon. No localized pericolonic fat stranding. No CT evidence of acute appendicitis. As described there is thickening in the region of the GE junction although motion precludes detail. There are diverticula in the duodenum. No evidence of pneumoperitoneum. ABDOMINAL WALL: No significant hernia is appreciated. LYMPH NODES: There are no measurably enlarged abdominal or pelvic lymph nodes. VASCULAR: There is no abdominal aortic aneurysm. There is irregular plaque in the lower abdominal aorta. The portal vein enhances. PELVIC VISCERA: The prostate is enlarged and indents the bladder. OSSEOUS STRUCTURES: No suspicious focal lesion. There is some degenerative change with vacuum phenomena at L5/S1 CT/CT abdomen pelvis w IV con IMPRESSION: Thickening in the region of the distal esophagus and GE junction although detail is limited by motion. There is no definite pneumomediastinum or pneumoperitoneum. No abscess demonstrated. Very large amount of fecal residue in the colon. There are diverticula in the duodenum. Fleischner guidelines were followed. Electronically signed by: Watson Euceda MD 12/02/2023 07:32 PM EDT
[2023-12-02 15:25] VITALS: BP 128/65; PULSE 93; RESP 14; TEMP 37.4; O2SAT 94; BMI 23.5
--- NOTE | 2023-12-02 15:29 | ECG_ITS ---
Test Reason : fall Blood Pressure : / mmHG Vent. Rate : 100 BPM Atrial Rate : 100 BPM P-R Int : 152 ms QRS Dur : 082 ms QT Int : 340 ms P-R-T Axes : 078 180 044 degrees QTc Int : 438 ms Sinus rhythm with Premature atrial complexes Right axis deviation Right ventricular hypertrophy Abnormal ECG When compared with ECG of 26-MAY-2022 08:58, Premature atrial complexes are now Present Left anterior fascicular block is no longer Present Nonspecific T wave abnormality no longer evident in Lateral leads Referred By: Generic ED Physician Electronically Signed By:MARTÍNEZ RUDOLPH
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
[2023-12-02 16:53] LABS: Basophils Percent Auto 0.4 % (0-2); Hemoglobin 16.5 g/dl (14.0-18.0); Imm Gran Abs Auto 0.01 X10*3/uL (0.00-0.03); Imm Gran Pct Auto 0.2 % (0.0-0.4); MANUAL DIFF FLAG SCAN; Mean Corpuscular Volume 83.9 fL (80.0-98.0); PLT CLUMP 1; Red Cell Distribution Width 13.2 % (11.0-16.0); SCAN SMEAR FLAG 1
[2023-12-02 16:55] LABS: Eosinophils Percent Auto 0.4 % (0-4); Lymphocytes Absolute Auto 1.1 X10*3/uL (1.2-4.9); Lymphocytes Percent Auto 20.3 % (20-40); Mean Corpuscular HGB Conc 35.1 g/dl (31.0-36.0); Mean Corpuscular Hemoglobin 29.5 pg (27.0-33.0); Mean Platelet Volume 10.6 fL (9.4-12.4); Monocytes Absolute Auto 1.1 X10*3/uL (0.1-1.2); Monocytes Percent Auto 19.2 % (2-11); Neutrophils Absolute Auto 3.4 x10*3/uL (2.0-8.3); Neutrophils Percent Auto 59.5 % (45-73)
[2023-12-02 16:56] LABS: Lactic Acid 1.1 mmol/L (0.5-2.0)
[2023-12-02 17:01] LABS: Alanine Aminotransferase 8 U/L (0-40); Alkaline Phosphatase 123 U/L (39-117); Anion Gap 12 (12-20); Aspartate Amino Transferase 13 U/L (5-37); Bilirubin Total 0.5 mg/dL (0.0-1.0); Blood Urea Nitrogen 19 mg/dL (9-16); Calcium 9.6 mg/dL (8.4-10.2); Carbon Dioxide 25 mmol/L (22-29); Chloride 105 mmol/L (96-108); Creatinine Clr Calc Pharmacy 44.1; Estimated Glomerular Filt Rate 45; Glucose Random 117 mg/dL (60-115); Potassium 4.4 mmol/L (3.3-5.1); Sodium 138 mmol/L (135-145); Total Protein 7.5 g/dL (6.5-8.0)
[2023-12-02] MEDS: 0.9 % Sodium Chloride 1,000 ML 999 ML IV (17:05)
[2023-12-02] MEDS: Pantoprazole Sodium 40 MG/10 ML VIAL 80 MG IVPUSH (17:06)
[2023-12-02 17:08] VITALS: BP 136/83; PULSE 96; RESP 12; TEMP 37.3; O2SAT 98
[2023-12-02 17:21] LABS: Platelet Count 178 X10*3/uL (160-400); White Blood Count 5.6 X10*3/uL (4.8-10.8)
[2023-12-02 17:22] LABS: SLIDE REVIEW VERIFIED
[2023-12-02] MEDS: iohexoL 350 MG/ML 100 ML INFUS..BTL IV (18:20)
--- NOTE | 2023-12-02 19:00 | PC.NURSE ---
report received from Lupe Goodman RN, assume care of pt at this time
[2023-12-02 19:44] LABS: Prothrombin Time 12.3 SEC (11.1-13.3)
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
[2023-12-02 20:33] VITALS: BP 142/88; PULSE 90; RESP 15; TEMP 37.2; O2SAT 98
[2023-12-02 21:03] LABS: Influenza A PCR NEGATIVE (Negative); Influenza B PCR NEGATIVE (Negative); Resp Syncy Virus RNA Qual PCR NEGATIVE (Negative); SARS COV2 PCR INHOUSE POSITIVE (Negative)
[2023-12-02 22:03] LABS: OBS Int Ctl Valid YES; OBS1 NEGATIVE (NEGATIVE)
[2023-12-03 00:54] VITALS: BP 138/85; PULSE 88; RESP 22; TEMP 36.6; O2SAT 95
--- NOTE | 2023-12-03 02:08 | PC.NURSE ---
resting quietly on stretcher, resp with ease, no s/s of actue distress, waiting on bed placement
[2023-12-03 05:32] LABS: Basophils Percent Auto 0.2 % (0-2); Eosinophils Percent Auto 0.2 % (0-4); Hematocrit 41.9 % (42.0-52.0); Hemoglobin 14.7 g/dl (14.0-18.0); Imm Gran Abs Auto 0.01 X10*3/uL (0.00-0.03); Imm Gran Pct Auto 0.2 % (0.0-0.4); Lymphocytes Absolute Auto 1.3 X10*3/uL (1.2-4.9); Lymphocytes Percent Auto 26.3 % (20-40); MANUAL DIFF FLAG SCAN; Mean Corpuscular HGB Conc 35.1 g/dl (31.0-36.0); Mean Corpuscular Hemoglobin 29.1 pg (27.0-33.0); Mean Corpuscular Volume 82.8 fL (80.0-98.0); Mean Platelet Volume 9.6 fL (9.4-12.4); Monocytes Percent Auto 20.8 % (2-11); Neutrophils Absolute Auto 2.5 x10*3/uL (2.0-8.3); Neutrophils Percent Auto 52.3 % (45-73); Platelet Count 187 X10*3/uL (160-400); Red Blood Count 5.06 X10*6/uL (4.60-5.80); Red Cell Distribution Width 13.1 % (11.0-16.0); SCAN SMEAR FLAG 1; White Blood Count 4.8 X10*3/uL (4.8-10.8)
[2023-12-03 05:41] VITALS: BP 143/81; PULSE 87; RESP 15; TEMP 37.6; O2SAT 96
[2023-12-03 05:48] LABS: Anion Gap 13 (12-20); Blood Urea Nitrogen 15 mg/dL (9-16); Calcium 8.8 mg/dL (8.4-10.2); Carbon Dioxide 23 mmol/L (22-29); Chloride 109 mmol/L (96-108); Estimated Glomerular Filt Rate 55; Glucose Random 92 mg/dL (60-115); Sodium 141 mmol/L (135-145)
[2023-12-03 05:50] LABS: SLIDE REVIEW VERIFIED
[2023-12-03] MEDS: Pantoprazole Sodium 40 MG/10 ML VIAL IVPUSH ×2 (06:18→16:11)
--- NOTE | 2023-12-03 07:03 | PC.NURSE ---
report given to Radha SHAFER
--- NOTE | 2023-12-03 09:25 | PHA.MEDREC ---
Addendum entered by Reanna Ramirez RPh 12/03/23 10:42: reviewed by [facility]. Original Note: Pharmacy Consult ? Medication Reconciliation Pharmacy has completed the medication reconciliation. Patient wasn't entirely sure what they take. Spoke to nurse at [facility] who confirmed their medications. Last had haloperidol injection on 11/25/23. Also takes a latanoprost eyedrop at bedtime and ondansetron every 6 hours prn at the facility. Added to the med list.
[2023-12-03] MEDS: levETIRAcetam 250 MG TABLET 750 MG PO ×2 (09:45→20:12)
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
--- NOTE | 2023-12-03 10:25 | PC.NURSE ---
Emily Gamez RN from [facility] called for an update on this pt.
[2023-12-03 10:27] VITALS: BP 136/92; PULSE 95; RESP 16; TEMP 37.3; O2SAT 95
[2023-12-03 16:00] VITALS: BP 139/83; PULSE 64; RESP 18; TEMP 36.7; O2SAT 97
[2023-12-03] MEDS: 0.9 % Sodium Chloride Flush 3 ML SYRINGE IVFLUSH ×2 (16:11→20:12)
--- NOTE | 2023-12-03 18:27 | PM.EVENT ---
Event Note Date of Service: 12/03/23 Event Note: GI Consult-Full note dictated-History from the patient, his RN, and the EMR. Imp: N/V but no sign of active bleeding. I suspect the acute GI sx may be related to his COVID infection. The CT findings of the distal esophagus seem quite nonspecific and may just be related to the recent vomiting. Rec: Observe. Hold off on an upper endo unless he shows signs of active bleeding. Advance diet as tolerated, oral PPI, and follow Hgb. He can be referred to me in the office for arrangement of an outpatient upper endoscopy. Please call if I can be of any further assistance during his hospitalization, Thanks Time Spent With Patient Time: Total time managing care of this patient today ____ minutes.
[2023-12-03 19:40] VITALS: BP 116/66; PULSE 74; RESP 20; TEMP 36.2; O2SAT 97
[2023-12-03] MEDS: Benztropine Mesylate 1 MG TABLET PO (20:12)
[2023-12-04] VITALS: BP 116/65; PULSE 87; RESP 20; TEMP 37.2; O2SAT 97
[2023-12-04 03:39] VITALS: BP 128/77; PULSE 80; RESP 20; TEMP 36.5; O2SAT 99
--- NOTE | 2023-12-04 03:49 | CONS_ITS ---
DATE OF SERVICE: 12/03/2023 REASON FOR CONSULTATION: Vomiting and question of GI bleeding. HISTORY OF PRESENT ILLNESS: This has been obtained from the patient, his nurse, and the medical record. The patient is a 68-year-old male, well known to me from a previous history of colonoscopies and removal of polyps. I last saw him in May when he underwent a followup colonoscopy that was negative for any recurrent polyps, although the prep was somewhat limited. 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 Apparently, the patient [facility] He had some vomiting, which was brown, but without any definitive bleeding. However, due to a concern about some bleeding, he was transferred to the ER. Since arrival in the ER, he has been very stable and has not had any sign of bleeding nor any further vomiting. He has tolerated some clear liquids. In discussion with the patient, he denies any abdominal pain. He reports that he had been eating fairly well without any particular issues with heartburn or dysphagia. He reports that his bowel movements have been fairly regular and without any bleeding. MEDICATIONS: At the prison include aspirin, benztropine, haloperidol, , Keppra, ondansetron. His medications here include IV Protonix, acetaminophen, Cogentin, Keppra, melatonin. PAST MEDICAL HISTORY: Brain surgery for a traumatic brain injury. Seizure disorder. Colon polyp as above. Glaucoma. Mood disorder. There is no reported history of DE, diabetes, nor stroke. SOCIAL HISTORY: [facility]. He does not smoke nor drink presently. REVIEW OF SYSTEMS: SKIN: He denies any pruritus. CARDIAC: No chest pain. PULMONARY: No coughing or hemoptysis. GI: As above. PHYSICAL EXAMINATION: GENERAL: Again, the patient is a pleasant, cooperative male, although somewhat sleepy. HEENT: Anicteric sclerae. Moist mucous membranes. CHEST: Clear. CARDIAC: Normal S1, S2. ABDOMEN: Soft, nondistended, nontender. LABORATORY DATA: Hemoglobin on admission was 16.5 and today is 14.7. White blood cell count 4.8, platelets 187,000. PT 12.3 with INR 1.0. Normal electrolytes. BUN 15, creatinine 1.3 today. BUN yesterday was 19 with creatinine 1.6. LFTs normal except for an alk phos of 123. Stool with Hemoccult negative yesterday. He did have a positive COVID test yesterday. He had a CT scan of his abdomen today that describes a hiatal hernia with some thickening of the distal esophagus. There was a large amount of stool in the colon. IMPRESSION: Given the patient's clinical history, this does not seem consistent with any significant gastrointestinal bleeding at the present time. He may have had some vomiting in relation to his COVID infection. The findings on the CT in regard to some thickening in the lower esophagus could be reflective of some esophagitis in relation to either chronic reflux and/or his recent vomiting. At this point, he appears very stable. Given his very stable clinical appearance and no sign of any active bleeding, I would recommend holding off an endoscopy for the time being given the positive COVID test and no sign of any symptoms that would warrant an emergent upper endoscopy. As such, I would recommend continuing his PPI, but change it over to oral. I think his diet can be advanced as tolerated. He is not due for another colonoscopy until 2025. He could be referred back to see us in the office to discuss possible upper endoscopy at some point. Thank you for the consultation. MD FARRAH Fernandez/BIANCA / [phone]
[2023-12-04] MEDS: Pantoprazole Sodium 40 MG/10 ML VIAL IVPUSH ×2 (05:44→15:41)
[2023-12-04 07:38] LABS: Hematocrit 40.9 % (42.0-52.0); Hemoglobin 14.3 g/dl (14.0-18.0); Mean Corpuscular Hemoglobin 29.1 pg (27.0-33.0); Mean Corpuscular Volume 83.1 fL (80.0-98.0); Mean Platelet Volume 9.9 fL (9.4-12.4); Platelet Count 184 X10*3/uL (160-400); Red Blood Count 4.92 X10*6/uL (4.60-5.80); Red Cell Distribution Width 13.2 % (11.0-16.0); White Blood Count 4.1 X10*3/uL (4.8-10.8)
[2023-12-04 07:49] LABS: Anion Gap 12 (12-20); Blood Urea Nitrogen 16 mg/dL (9-16); Calcium 8.4 mg/dL (8.4-10.2); Carbon Dioxide 24 mmol/L (22-29); Chloride 109 mmol/L (96-108); Creatinine Clr Calc Pharmacy 52.2; Estimated Glomerular Filt Rate 54; Glucose Fasting 91 mg/dL (60-99); Potassium 3.9 mmol/L (3.3-5.1); Sodium 141 mmol/L (135-145)
[2023-12-04 08:00] VITALS: BP 128/74; PULSE 58; RESP 20; TEMP 36.6; O2SAT 97
[2023-12-04] MEDS: levETIRAcetam 250 MG TABLET 750 MG PO ×2 (09:23→20:46)
[2023-12-04] MEDS: Benztropine Mesylate 1 MG TABLET PO ×2 (09:24→20:46)
[2023-12-04] MEDS: 0.9 % Sodium Chloride Flush 3 ML SYRINGE IVFLUSH ×3 (09:24→20:48)
--- NOTE | 2023-12-04 09:29 | MHC.CM.PN ---
DC plan is for Patient to return to LTC @ [facility] via S([place] Medicaid only)CM has initiated and will follow for dc planning. CM left a detailed message for Guardian/Miri @ [phone], informing her of Patient's admission.
--- NOTE | 2023-12-04 11:03 | MHC.CM.PN ---
Per MD, Patient is medically cleared for dc; CM awaits a response from [facility], in order to coordinate dc. CM will follow.
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
[2023-12-04 12:00] VITALS: BP 138/76; PULSE 81; RESP 20; TEMP 36.1; O2SAT 98
[2023-12-04 16:00] VITALS: BP 108/71; PULSE 82; RESP 20; TEMP 36.5; O2SAT 96
[2023-12-04 19:52] VITALS: BP 108/64; PULSE 64; RESP 18; TEMP 36.2; O2SAT 96
[2023-12-04] MEDS: Latanoprost 0.005 % Ophth Sol 2.5 ML DROPS 1 DROP EYE-BOTH (23:06)
[2023-12-05] VITALS: BP 122/72; PULSE 77; RESP 16; TEMP 36.9; O2SAT 97
[2023-12-05 03:48] VITALS: BP 140/74; PULSE 75; RESP 16; TEMP 36.8; O2SAT 97
[2023-12-05] MEDS: Pantoprazole Sodium 40 MG/10 ML VIAL IVPUSH (05:34)
[2023-12-05 08:00] VITALS: BP 131/81; PULSE 61; RESP 20; TEMP 36.4; O2SAT 97
--- NOTE | 2023-12-05 08:39 | MHC.CM.PN ---
Patient has been medically cleared for dc to return to LTC today. Patient will dc back to LTC @ [facility] today at 1PM, via [facility]. CM has left a detailed message for Patient's Guardian/Miri @ [phone], informing her of the dc plan.
[2023-12-05] MEDS: 0.9 % Sodium Chloride Flush 3 ML SYRINGE IVFLUSH (08:40)
[2023-12-05] MEDS: levETIRAcetam 250 MG TABLET 750 MG PO (08:40)
[2023-12-05] MEDS: Benztropine Mesylate 1 MG TABLET PO (08:40)
--- NOTE | 2023-12-05 08:47 | MHC.CM.PN ---
CM met with Patient at bedside and addressed IMM with him, providing Patient with the original and a copy has been placed in the chart. CM encouraged Patient to complete a new HCP so that the hospital would have a copy but he declined stating that his Brother Archie is already his HCP and that he will ask him to bring a copy in. CM has referred Patient to [facility] (? of need for LTC). CM will follow.
--- NOTE | 2023-12-05 09:26 | MHC.CM.PN ---
This CM attempted to get [place] Medicaid auth for transport but after multiple attempt, this CM's account was deactivated. This CM asked the assistance of a CM Coworker, who ultimately reached out to CM/Press Set Up Person for assistance.
--- NOTE | 2023-12-05 10:13 | PC.NURSE ---
Tried call report on pt to nursing team at [facility] at 10:10 am. There was no answer at facility.
== END 2023-12-05 13:43 | DRG 137 ==
LOC: HO.ED 21:18 → HO.EDOVER 22:52 → HO.IMC 12-03 14:05
PROVIDERS: Admitting Provider Student in an Organized Health Care Education/Training Program; Emergency Provider Student in an Organized Health Care Education/Training Program; PCP Hospitalist; Visit Provider Internal Medicine
DX: U07.1 COVID-19 (principal); N17.9 Acute kidney failure, unspecified; R47.01 Aphasia; G40.909 Epilepsy, unspecified, not intractable, without status epilepticus; S06.9XAS Unspecified intracranial injury with loss of consciousness status unknown, sequela; V29.99XS Rider (driver) (passenger) of other motorcycle injured in unspecified traffic accident, sequela; Z79.82 Long term (current) use of aspirin; Z79.899 Other long term (current) drug therapy
CPT/HCPCS: 0241U; 36415; 74177; 80048; 80053; 82272; 83605; 85025; 85027; 85610; 86850; 86900; 86901; 93005; 99285; J2470; Q9967

== ENCOUNTER → 2023-12-02 15:33 | Outpatient (BNV) | payer MEDICAID, SELFPAY | PROVIDERS: Emergency Provider Student in an Organized Health Care Education/Training Program; Visit Provider Student in an Organized Health Care Education/Training Program | DX: K92.0 Hematemesis (principal) | CPT/HCPCS: 99223; 99232; 99239 ==

== ENCOUNTER 2024-07-14 09:45 | Day surgery (SDC) | payer MEDICAID, SELFPAY ==
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
[2024-07-12 15:12] VITALS: BMI 23.6
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
[2024-07-14 09:58] VITALS: BP 135/80; PULSE 96; RESP 14; TEMP 36.7; O2SAT 96; BMI 23.3
[2024-07-14] MEDS: Lactated Ringers 1,000 ML 100 ML IVCONT (10:24)
--- NOTE | 2024-07-14 10:52 | P.CONAN_ITS ---
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 Functional capacity: independent ambulation Family History Family History Other Family history unknown Family history of problems with anesthesia: No Surgical History Surgical History History of lung biopsy History of surgery of head H/O colonoscopy History of Problems with Anesthesia: No Social History Social History Household Members: None Housing: Assisted Living Facility Housing Other:: [facility] Are you a primary direct care provider to a significant other at home: No Do you presently have visiting nurse or other home services: No Unable to assess alcohol history related to: Unknown Alcohol intake: unknown Patient Tobacco Use Status: Former Tobacco user Use of substances other than those prescribed or required for medical reasons: No Have you been hit, kicked, punched, or otherwise hurt by someone within the past year? If so, by whom?: No Are you DNR?: No Advance Directives: No Advance Directives Information Provided: Yes Advance Directives Date on File: 06/14/09 Poor oral hygiene: No service: No Meds Allergies Allergy/AdvReac Type Severity Reaction Status Date / Time insulin aspart Allergy Unknown Verified 07/14/24 09:51 Penicillins Allergy Unknown Verified 07/14/24 09:51 Active Medications: Current Medications Lactated Ringer's (Lr) 1,000 mls @ 100 mls/hr IVCONT .Q10H CALEB Last Admin: 07/14/24 10:24 Dose: 100 mls/hr Home Medications ?Medication ?Instructions ?Recorded ?Confirmed ?Last Taken ?Type benztropine 1 mg tablet 1 mg PO BID 04/18/21 07/12/24 12/02/23 History latanoprost 0.005 % eye drops 1 drp ophthalmic (eye) BEDTIME 12/03/23 07/12/24 12/02/23 History ondansetron 4 mg disintegrating 4 mg PO DAILY Nausea 12/03/23 07/12/24 12/02/23 History tablet acetaminophen 325 mg tablet 650 mg PO Q4H PRN Pain 07/12/24 07/12/24 Unknown History esomeprazole magnesium 40 mg 40 mg PO DAILY 07/12/24 07/12/24 Unknown History capsule,delayed release (Nexium) haloperidol decanoate 50 mg/mL 50 mg IM Q4W 07/12/24 07/12/24 Unknown History intramuscular solution ondansetron 4 mg disintegrating 4 mg PO Q6H 07/12/24 07/12/24 Unknown History tablet sennosides 8.6 mg-docusate sodium 2 tab-cap PO BEDTIME 07/12/24 07/12/24 Unknown History 50 mg tablet Exam Height,Weight and Vital Signs: Height 5 ft 8 in Weight 69.4 kg Last Vital Signs Temp 98.0 F 07/14/24 09:58 Pulse 96 07/14/24 09:58 Resp 14 07/14/24 09:58 BP 135/80 07/14/24 09:58 Pulse Ox 96 07/14/24 09:58 O2 Del Method Room Air 07/14/24 09:58 Airway Mallampati Class: II TM Dist: >3cm Neck ROM: Full Heart: RRR Lungs: CTA Assessment and Plan Assessment Anesthesia Assessment: Anesthesia Plan Discussed and Chart Reviewed Final Anesthetic Review Family History of Problems with Anesthesia: No History of Problems with Anesthesia: No NPO: Yes ASA Class: III Final Preanesthetic Review: Meds/Allgs Chart Reviewed, Consent Obtained/Reviewed and Anes Risks/Benef Reviewed Patient Risk: Intermediate Procedure Risk: Low Anesthetic Plan Anesthetic Plan: MAC: Disposition: Standard PACU
[2024-07-14 11:56] VITALS: BP 100/60; PULSE 97; RESP 16; TEMP 36.2; O2SAT 93
[2024-07-14 12:00] VITALS: BP 115/66; PULSE 89; RESP 16; O2SAT 93
--- NOTE | 2024-07-14 12:03 | PM.OP ---
Brief Operative Note Date of Service: 07/14/24 Pre-op diagnosis: GERD, Abnormal CT of esophagus Post-op diagnosis: other (Hiatal hernia) Procedure: EGD Surgeon: Олег Loving MD Anesthesia: MAC Was an Stamp Presser used for this Procedure?: No Estimated blood loss (mL): 0 Pathology: none sent Condition: stable Disposition: PACU
[2024-07-14 12:11] VITALS: BP 130/85; PULSE 91; RESP 16; O2SAT 95
[2024-07-14 12:25] VITALS: BP 129/84; PULSE 76; RESP 16; TEMP 36.3; O2SAT 95
--- NOTE | 2024-07-14 12:56 | OP_ITS ---
DATE OF SERVICE: 07/14/2024 SURGEON: Олег Loving MD INDICATIONS: The patient presents for evaluation of gastroesophageal reflux and abnormal CT scan of the esophagus. Full consent has been obtained from him for this, including risks of bleeding and perforation. PREOPERATIVE DIAGNOSIS: POSTOPERATIVE DIAGNOSIS: PROCEDURE PERFORMED: Esophagogastroduodenoscopy. ESTIMATED BLOOD LOSS: COMPLICATIONS: ANESTHESIA: Monitored anesthesia care. ASSISTANTS: SPECIMENS: PREOPERATIVE DIAGNOSES: Gastroesophageal reflux and abnormal CT scan of esophagus. POSTOPERATIVE DIAGNOSES: Gastroesophageal reflux and abnormal CT scan of esophagus, small hiatal hernia. DESCRIPTION OF PROCEDURE: The patient was placed in the left lateral decubitus position. The Olympus videogastroscope was passed in the posterior oropharynx and upper esophagus under direct vision. The scope was passed slowly into the distal esophagus. The gastroesophageal junction appeared normal at 38 cm other than some very minimal irregularity. There was no esophagitis nor any sign of [place] esophagus. The scope entered the stomach. There was a small hiatal hernia. The scope was advanced to pylorus and the duodenum was cannulated the descending portion. The duodenum including the bulb appeared normal without mass or ulceration. The scope was withdrawn back in the stomach. The gastric antrum and body appeared normal with good peristalsis. The scope was retroflexed visualizing the proximal stomach carefully which appeared normal, without any sign of mass or ulceration. The scope was straightened and withdrawn back to the esophagus. Proximal to the EG junction, the esophageal mucosa appeared normal. The scope was withdrawn from the patient. He tolerated the procedure well and was returned to the recovery area in stable condition. IMPRESSION: Small hiatal hernia, minimal changes of gastroesophageal reflux. PLAN: The patient will continue his current regimen of his PPI. He will not need any further upper endoscopies based on today's findings. He will be due for another colonoscopy in 2025. He will see me otherwise on a p.r.n. basis. Олег Loving MD RMRajiv/RANDALL / [id number]
--- NOTE | 2024-07-14 14:38 | HO.POSTANES ---
Post Anesthesia Evaluation Post Anesthesia Evaluation Date of Service: 07/14/24 Vital Signs: Vital Signs Temp Pulse Resp BP Pulse Ox O2 Del Method 07/14/24 12:25 97.3 F 76 16 129/84 95 Room Air 07/14/24 12:11 91 16 130/85 95 Room Air 07/14/24 12:00 89 16 115/66 93 Room Air 07/14/24 11:56 97.1 F 97 16 100/60 93 Room Air 07/14/24 09:58 98.0 F 96 14 135/80 96 Room Air Anesthesia: Monitored Mental Status: Awake Pain Control: Satisfactory Nausea/Vomiting: None Hydration: Adequate Anesthesia-Related Issues: No Anes. Related Issues
== END 2024-07-14 12:45 | disposition home or self-care (01) ==
PROVIDERS: PCP Hospitalist; Visit Provider Internal Medicine
PROC: 0DJ08ZZ Inspection of Upper Intestinal Tract, Via Natural or Artificial Opening Endoscopic (ICD-10-PCS; CPT 43235; principal; 2024-07-14 10:30)
DX: R93.5 Abnormal findings on diagnostic imaging of other abdominal regions, including retroperitoneum (principal); K21.9 Gastro-esophageal reflux disease without esophagitis; K44.9 Diaphragmatic hernia without obstruction or gangrene; N28.1 Cyst of kidney, acquired; R91.1 Solitary pulmonary nodule; F29 Unspecified psychosis not due to a substance or known physiological condition; F07.0 Personality change due to known physiological condition; R56.9 Unspecified convulsions; H40.9 Unspecified glaucoma; Z87.820 Personal history of traumatic brain injury; Z79.899 Other long term (current) drug therapy; Z88.0 Allergy status to penicillin; Z88.8 Allergy status to other drugs, medicaments and biological substances; Z98.890 Other specified postprocedural states; Z87.891 Personal history of nicotine dependence
CPT/HCPCS: 43235; J2003; J2704